=== PATIENT | female | born 1960 | race Caucasian/White ===

== ENCOUNTER 2021-01-17 12:38 | Outpatient (REF) | payer MEDICAID, SELFPAY ==
--- NOTE | ~2021-01-17 | CT_ITS ---
EXAMINATION: CT HEAD WITHOUT CONTRAST CLINICAL INFORMATION: Amnesia. COMPARISON: Head CT from 12/12/2016. TECHNIQUE: Contiguous axial imaging was performed from the skull base to vertex without intravenous administration of contrast. This CT examination was performed using dose optimization techniques as appropriate, variously including the following: *Automated exposure control *Adjustment of mA and/or kV according to patient size (this includes techniques or standardized protocols for targeted exams where dose is matched to indication/reason for exam; i.e. extremities or head) *Use of iterative reconstruction technique DLP: 732 mGy-cm FINDINGS: There is no evidence of acute intracranial hemorrhage or territorial infarction. No abnormal mass effect or midline shift is seen. Clarke to white matter differentiation is well preserved. No extra-axial fluid collections are identified. The ventricles are normal in size. There is no abnormal attenuation within the brain parenchyma. The osseous structures and soft tissues are normal. The mastoid air cells are are well aerated. There is mild patchy mucosal thickening in the paranasal sinuses. CT/CT head/brain wo con IMPRESSION: No acute intracranial pathology.
== END 2021-01-17 12:39 | disposition home or self-care (01) ==
LOC: HO.CT 12:38
PROVIDERS: PCP Internal Medicine Geriatric Medicine; Visit Provider Internal Medicine Geriatric Medicine
DX: R41.3 Other amnesia (principal)
CPT/HCPCS: 70450

== ENCOUNTER 2021-06-18 14:22 | Outpatient (REF) | payer MEDICAID, SELFPAY ==
[2021-06-19 03:12] LABS: CT PCR NOT DETECTED (Not Detect.); NG PCR NOT DETECTED (Not Detect.)
[2021-06-19 07:56] LABS: HBc Num1 0.04 S/CO (0.00-0.79); HIV AB/AG Nonreactive (Nonreactive); HIV Num 1 0.05 S/CO (0.00-0.99); Hepatitis B Core Antibody Nonreactive (Nonreactive); ~HepC Num1 0.07 S/CO (0.00-0.79); ~Hepatitis C Antibody Nonreactive (Nonreactive)
[2021-06-19 08:14] LABS: Syphilis Screen Nonreactive (Nonreactive)
[2021-06-19 12:16] LABS: BV Int Neg Control Negative (Negative); BV Int Pos Control Positive (Positive)
[2021-06-20 21:02] LABS: HPV mRNA E6/E7 rflx Not Detected (Not Detected)
== END 2021-06-18 14:23 | disposition home or self-care (01) ==
LOC: HO.LAB 14:22
PROVIDERS: Visit Provider Advanced Practice Midwife
DX: Z01.411 Encounter for gynecological examination (general) (routine) with abnormal findings (principal); Z11.51 Encounter for screening for human papillomavirus (HPV); Z11.4 Encounter for screening for human immunodeficiency virus [HIV]; N76.0 Acute vaginitis; Z20.2 Contact with and (suspected) exposure to infections with a predominantly sexual mode of transmission
CPT/HCPCS: 36415; 86704; 86780; 86803; 87389; 87480; 87491; 87510; 87591; 87624; 87660; 88142

== ENCOUNTER 2021-06-18 16:16 | Outpatient (REF) | payer MEDICAID, SELFPAY | END 2021-06-18 16:17 | disposition home or self-care (01) | LOC: HO.LAB 16:16 | PROVIDERS: PCP Internal Medicine Geriatric Medicine; Visit Provider Advanced Practice Midwife | DX: Z13.89 Encounter for screening for other disorder (principal) ==

== ENCOUNTER 2021-10-17 14:34 | Outpatient (REF) | payer MEDICAID, SELFPAY ==
--- NOTE | ~2021-10-17 | MM_ITS ---
EXAMINATION: MM SCREENING DIGITAL BREAST TOMOSYNTHESIS, BILATERAL CLINICAL INFORMATION: Screening. Asymptomatic. The lifetime risk of breast cancer based on the Tyrer-Cuzick Model is 4%. COMPARISON: Mammography: 10/08/2016, 06/05/2015 TECHNIQUE: Digital breast tomosynthesis is performed in both the craniocaudal and mediolateral oblique views along with computer-aided detection (CAD). Synthesized 2D images are generated from the tomosynthesis. FINDINGS: There are scattered areas of fibroglandular density (ACR BI-RADS breast composition Category b). There are no significant masses, abnormal calcifications, or other abnormalities. Parenchymal pattern is similar to prior studies. There is no developing density or architectural abnormality. The axilla and skin contours are unremarkable. No significant changes. MM/MM tomosynthesis screening BI IMPRESSION: No mammographic evidence of malignancy. ASSESSMENT: BI-RADS 1: Negative RECOMMENDATION: Routine annual mammography screening. This patient's information was entered into a reminder system with a target due date for their next mammogram.
== END 2021-10-17 14:35 | disposition home or self-care (01) ==
LOC: HO.MAMMO 14:34
PROVIDERS: Visit Provider Advanced Practice Midwife
DX: Z12.31 Encounter for screening mammogram for malignant neoplasm of breast (principal)
CPT/HCPCS: 77063; 77067

== ENCOUNTER 2021-11-08 07:55 | Emergency (ER) | payer MEDICAID, SELFPAY ==
[2021-11-08] VITALS (8 sets, daily range): BP systolic 104–136; BP diastolic 61–96; PULSE 43–94; RESP 13–24; TEMP 36.1–37.2; O2SAT 91–100; BMI 28.0
[2021-11-08 08:26] LABS: Glucose, Whole Blood 141 mg/dL (60-115)
--- NOTE | 2021-11-08 08:26 | ECG_ITS ---
Test Reason : overdose Blood Pressure : / mmHG Vent. Rate : 053 BPM Atrial Rate : 053 BPM P-R Int : 166 ms QRS Dur : 080 ms QT Int : 450 ms P-R-T Axes : 051 014 016 degrees QTc Int : 422 ms Sinus bradycardia Septal infarct , age undetermined Abnormal ECG When compared with ECG of 12-MAY-2016 15:35, No significant change was found Referred By: Otilia Fisher Electronically Signed By:JHOANA SWAN
--- NOTE | 2021-11-08 08:29 | ED_ITS ---
HPI - Overdose General Chief Complaint: Overdose <Otilia Fisher NP - Last Filed: 11/08/21 17:57> Stated Complaint: Overdose <Otilia Fisher NP - Last Filed: 11/08/21 17:57> Time Seen by Provider: 11/08/21 08:09 <Otilia Fisher NP - Last Filed: 11/08/21 17:57> Source: EMS <Otilia Fisher NP - Last Filed: 11/08/21 17:57> Mode of arrival: EMS <Otilia Fisher NP - Last Filed: 11/08/21 17:57> History of Present Illness HPI Narrative: 61 yo was found on the side of the road by bystanders unresponsive and received 8mg IN narcan with +response. Patient arrives anxious, agitated, diaphoretic and incontinent of urine and stool. Reports she used 3 bags of heroin this morning. Not intentional OD. No SI. Denies additional substance use. <Otilia Fisher NP - Last Filed: 11/08/21 17:57> Related Data Home Medications: Home Medications Medication Instructions Recorded Confirmed albuterol sulfate 90 mcg/actuation 2 puff PO QID PRN 06/18/21 aerosol inhaler (ProAir HFA) budesonide-formoterol HFA 80 2 puff PO 06/18/21 mcg-4.5 mcg/actuation aerosol inhaler (Symbicort) buspirone 7.5 mg tablet 7.5 mg PO BID 06/18/21 diclofenac sodium 1 % topical gel 2 g topical BID 06/18/21 dulaglutide 0.75 mg/0.5 mL mg subcut QWEEK 06/18/21 subcutaneous pen injector (Trulicity) duloxetine 20 mg capsule,delayed 20 mg PO DAILY 06/18/21 release duloxetine 60 mg capsule,delayed 60 mg PO DAILY 06/18/21 release fluticasone propionate 110 1 puff PO BID 06/18/21 mcg/actuation HFA aerosol inhaler (Flovent HFA) gabapentin 300 mg capsule 300 mg PO TID 06/18/21 glipizide 5 mg tablet 2.5 mg PO BID 06/18/21 insulin glargine 100 unit/mL (3 30 unit subcut BEDTIME 06/18/21 mL) subcutaneous pen (Lantus Solostar U-100 Insulin) losartan 50 mg tablet 50 mg PO DAILY 06/18/21 mirtazapine 7.5 mg tablet 7.5 mg PO BEDTIME 06/18/21 montelukast 10 mg tablet 10 mg PO QPM 06/18/21 quetiapine 25 mg tablet 25 mg PO BEDTIME 06/18/21 Previous Rx's Medication Instructions Recorded clotrimazole-betamethasone 1 1 appl topical BID PRN itching 7 06/18/21 %-0.05 % topical cream days #45 grams <Otilia Fisher NP - Last Filed: 11/08/21 17:57> Allergies/Adverse Reactions: Allergies Allergy/AdvReac Type Severity Reaction Status Date / Time sulfamethoxazole Allergy Intermediate LIP Verified 06/18/21 15:10 [From BACTRIM] SWELLING soap [SOAP] Allergy Mild HIVES (TO Verified 06/18/21 15:10 IVORY SOAP) Sulfa (Sulfonamide Allergy Unknown Unknown Verified 06/18/21 15:10 Antibiotics) prednisone [PREDNISONE] AdvReac Intermediate bruising Verified 06/18/21 15:10 ivory soap Allergy Unknown hives Uncoded 07/27/13 00:00 <Otilia Fisher NP - Last Filed: 11/08/21 17:57> Review of Systems Review of Systems: Yes all other systems are reviewed and are negative <Otilia Fisher NP - Last Filed: 11/08/21 17:57> Constitutional: Constitutional: Reports no additional constitutional complaints, Denies body ache(s), Denies chills, Denies fever(s), Denies headache(s) and Denies weakness <Otilia Fisher NP - Last Filed: 11/08/21 17:57> Eyes: Eyes: Reports no additional eye complaints and Denies change in vision <Otilia Fisher NP - Last Filed: 11/08/21 17:57> ENT: Reports system reviewed and no additional complaints, except as documented, Denies dizziness, Denies headache(s), Denies nasal congestion, Denies nasal discharge and Denies neck pain <Otilia Fisher NP - Last Filed: 11/08/21 17:57> Cardiovascular: Cardiovascular: Reports no additional cardiovascular comp laints, Denies chest pain, Denies leg edema and Denies dyspnea <Otilia Fisher NP - Last Filed: 11/08/21 17:57> Respiratory: Respiratory: Reports no additional respiratory complaints, Denies cough and Denies dyspnea <Otilia Fisher NP - Last Filed: 11/08/21 17:57> Gastrointestinal: Gastrointestinal: Reports no additional gastrointestinal complaints, Denies abdominal pain, Denies diarrhea, Denies nausea and Denies vomiting <Otilia Fisher NP - Last Filed: 11/08/21 17:57> Genitourinary: Genitourinary: Reports no additional female genitourinary com plaints and Denies urinary incontinence <Otilia Fisher NP - Last Filed: 11/08/21 17:57> Musculoskeletal: Musculoskeletal: Reports no additional musculoskeletal complaints, Denies back pain, Denies arthralgias, Denies joint swelling, Denies neck pain, Denies numbness and Denies tingling <Otilia Fisher NP - Last Filed: 11/08/21 17:57> Integumentary/Breasts: Skin/Breast: Reports system reviewed and no additional complaints, except as docu and Denies rash <Otilia Fisher NP - Last Filed: 11/08/21 17:57> Neurologic: Reports system reviewed and no additional complaints, except as documented, Denies dizziness, Denies headache(s), Denies numbness, Denies tingling and Denies weakness <Otilia Fisher NP - Last Filed: 11/08/21 17:57> Psychiatric: Psychiatric: Reports anxiety and Denies suicidal ideation <Otilia Fisher NP - Last Filed: 11/08/21 17:57> PMFSH Past Medical History Attestation statement: The following information was validated with the patient. <Otilia Fisher NP - Last Filed: 11/08/21 17:57> Source: old records reviewed and nursing notes reviewed <Otilia Fisher NP - Last Filed: 11/08/21 17:57> Medical History: Medical History Depression Diabetes Insomnia Interstitial cystitis <Otilia Fisher NP - Last Filed: 11/08/21 17:57> Surgical History: Surgical History Hx of appendectomy Tubal ligation status <Otilia Fisher NP - Last Filed: 11/08/21 17:57> Social History Social History: Social History Patient Tobacco Use Status: Current someday Tobacco user Advance Directives: No Advance Directives Information Provided: No <Otilia Fisher NP - Last Filed: 11/08/21 17:57> Physical Exam Vital Signs: Vital Signs: Last Vital Signs Temp 97.6 F 11/08/21 18:10 Pulse 43 L 11/08/21 18:10 Resp 14 11/08/21 18:10 BP 125/86 11/08/21 18:10 Pulse Ox 91 L 11/08/21 18:10 O2 Del Method 11/08/21 18:10 BMI result Body Mass Index 28.0 <Otilia Fisher NP - Last Filed: 11/08/21 17:57> Vital Signs: Last Vital Signs Temp 97.6 F 11/08/21 18:10 Pulse 43 L 11/08/21 18:10 Resp 14 11/08/21 18:10 BP 125/86 11/08/21 18:10 Pulse Ox 91 L 11/08/21 18:10 O2 Del Method 11/08/21 18:10 BMI result Body Mass Index 28.0 <JULIANNA Bernal - Last Filed: 11/08/21 21:17> Const: Other: agitated <Otilia Fisher NP - Last Filed: 11/08/21 17:57> General: alert and anxious <Otilia Fisher NP - Last Filed: 11/08/21 17:57> Orientation/consciousness: patient oriented x3 <Otilia Fisher NP - Last Filed: 11/08/21 17:57> Limitations: no limitations <Otilia Fisher NP - Last Filed: 11/08/21 17:57> HEENT: Head: Yes normal to inspection <Otilia Fisher NP - Last Filed: 11/08/21 17:57> Ears: hearing grossly normal bilaterally <Otilia Fisher [employer] - Last Filed: 11/08/21 17:57> General nose exam: Normal external nose present <Otilia Fisher NP - Last Filed: 11/08/21 17:57> Face and sinus: Yes normal facial exam <Otilia Fisher [employer] - Last Filed: 11/08/21 17:57> Mouth: Normal oral and palatal mucosa present <Otilia Fisher NP - Last Filed: 11/08/21 17:57> Throat: Yes posterior oropharynx normal <Otilia Fisher [employer] - Last Filed: 11/08/21 17:57> Eyes: General: appearance normal, both eyes and all related structures <Otilia Fisher [employer] PROF[employer] - Last Filed: 11/08/21 17:57> Pupils: Equal, round and reactive pupils present <Otilia Fisher NP - Last Filed: 11/08/21 17:57> Neck: Neck: Yes normal visual inspection <Otilia Fisher NP - Last Filed: 11/08/21 17:57> Chest: Chest palpation & inspection: normal inspection of the chest <Otilia Fisher NP - Last Filed: 11/08/21 17:57> Resp: Effort & Inspection: normal respiratory effort <Otilia Fisher NP - Last Filed: 11/08/21 17:57> Auscultation: clear to auscultation bilaterally <Otilia Fisher NP - Last Filed: 11/08/21 17:57> Cardio: Rate: regular rate <Otilia Fisher NP - Last Filed: 11/08/21 17:57> Rhythm: regular rhythm <Otilia Fisher NP - Last Filed: 11/08/21 17:57> Peripheral pulses: Peripheral pulses 2+ throughout <Otilia Fisher NP - Last Filed: 11/08/21 17:57> GI: Inspection: Yes normal to inspection <Otilia Fisher NP - Last Filed: 11/08/21 17:57> Palpation (GI): Soft to palpation and nontender <Otilia Fisher NP - Last Filed: 11/08/21 17:57> Auscultation: normal bowel sounds <Otilia Fisher NP - Last Filed: 11/08/21 17:57> Back/Spine/Pelvis: Thoracic/Lumbar Spine: thoracic and lumbar spine normal to inspection <Otilia Fisher NP - Last Filed: 11/08/21 17:57> Skin: Other: +diaphoretic <Otilia Fisher NP - Last Filed: 11/08/21 17:57> General skin exam: no rashes or lesions noted <Otilia Fisher NP - Last Filed: 11/08/21 17:57> Neuro: General: patient oriented x3 and moves all extremities <Otilia Fisher NP - Last Filed: 11/08/21 17:57> Cranial nerves: Yes Equal, round and reactive pupils present <Otilia Fisher NP - Last Filed: 11/08/21 17:57> Cognition (Neuro): normal cognition <Otilia Fisher NP - Last Filed: 11/08/21 17:57> Extrem: General: Yes normal to inspection <Otilia Fisher NP - Last Filed: 11/08/21 17:57> Course Course Course Narrative: Met with disaster recovery manager but not participating <Otilia Fisher NP - Last Filed: 11/08/21 17:57> Reevaluation(s) Reevaluation #1: 1540-patient's initial troponin was 19. Her EKG showed no ischemic changes when compared to previous EKG. A repeat EKG was obtained and a level is 35.3. Patient denies chest pain. CPK will be added on. Less likely ACS. Consider rhabdo. Will trend <Otilia Fisher NP - Last Filed: 11/08/21 17:57> Reevaluation #2: 1600-CPK is 1490. This is likely secondary to the patient's restlessness earlier, agitation and movement secondary to receiving Narcan. Patient will be given 2 L of IV fluid as she is sleeping although rousable to voice. Ox4. Once she is awake will encourage p.o. fluids and will trend CPK and troponin. <Otilia Fisher NP - Last Filed: 11/08/21 17:57> Reevaluation #3: 1745-Spoke to family (daughter Nelda) at the bedside. Given update on POC. She tells me her mom has a longstanding history of polysubstance abuse. She tells me that her mom is been to detox many times but always leaves early. She uses heroin and crack daily. She tells me that when she spoke to the patient last she was using about 10 bags of heroin a day and was sniffing this. She also smokes crack cocaine. Patient tells me she is quite worried about the patient's polysubstance use. Is interested in a [place] 35. Will have care team come and speak to the family about this process <Otilia Fisher NP - Last Filed: 11/08/21 17:57> Additional Reevaluation(s): 1800-Sign out to kellen parker pending above <Otilia Fisher NP - Last Filed: 11/08/21 17:57> 1800-Sign out to kellen parker pending above 1803 Leslie from care team gave daughter info on section 35 daughter will go on Thursday to court. 1950 Patient's troponin improving, patient denying chest pain, shortness of breath, l ikely demand ischemia secondary to drug use. CK down trending 880. Patient sleeping comfortably. Although nursing documented a O2 saturation of 91% patient has not dropped below 97% since I took over for care. Patient appears comfortable no acute distress. Will put in a substance use disorder evaluation. At this time patient will be placed in physician observation to allow more time to be evaluated by the behavioral health team. At time observation was started patient common cooperative no acute distress will continue to monitor. 2115 care team will reeval patient at a later time not participating in convo <JULIANNA Bernal - Last Filed: 11/08/21 21:17> MDM - Overdose MDM Narrative Medical decision making narrative: 61 yo female here after unintentional OD on heroin who required 8mg IN narcan [employer]. Patient arrives alert but quite agitated, anxious, restless, diaphoretic and incontinent of urine and stool. Admits to using heroin. HPI is limited d/t patients cooperativeness. She has never been here before for this. Will check labs, EKG, BARRAZA Give Ativan Involve CARE team <Otilia Fisher NP - Last Filed: 11/08/21 17:57> Medical Records Attestation: I reviewed the patient's medical records. <Otilia Fisher NP - Last Filed: 11/08/21 17:57> Lab Data Attestation: I reviewed the patient's lab results. <Otilia Fisher NP - Last Filed: 11/08/21 17:57> Result diagrams: : 11/08/21 10:54 11/08/21 10:54 <Otilia Fisher NP - Last Filed: 11/08/21 17:57> Labs: Lab Results 11/08/21 11/08/21 11/08/21 Range/Units 08:23 10:54 10:54 WBC 11.5 H (4.8-10.8) X10*3/uL RBC 4.58 (4.20-5.50) X10*6/uL Hgb 13.2 (12.0-16.0) g/dl Hct 39.4 (37.0-47.0) % MCV 86.0 (80.0-98.0) fL MCH 28.8 (27.0-33.0) pg MCHC 33.5 (31.0-35.0) g/dl RDW 12.6 (11.0-16.0) % Plt Count 257 (160-400) X10*3/uL MPV 10.6 (9.4-12.3) fL Immature Gran % (Auto) 0.2 (0.0-0.4) % Neut % (Auto) 80.0 H (45-73) % Lymph % (Auto) 11.3 L (20-40) % [place] % (Auto) 6.0 (2-11) % Eos % (Auto) 2.2 (0-4) % Baso % (Auto) 0.3 (0-2) % Lymph # (Auto) 1.3 (1.2-4.9) X10*3/uL [place] # (Auto) 0.7 (0.1-1.2) X10*3/uL Eos # (Auto) 0.3 (0.0-0.4) X10*3/uL Baso # (Auto) 0.0 (0.0-0.2) X10*3/uL Abs Immat Gran (auto) 0.02 (0.00-0.03) X10*3/uL Absolute Neuts (auto) 9.2 H (2.0-8.3) x10*3/uL Absolute Nucleated RBC 0.000 (0.0-0.012) X10*3/uL Nucleated RBC % (auto) 0.0 (0.0-0.2) /100WBC Sodium 142 (135-145) mmol/L Potassium 3.9 (3.3-5.1) mmol/L Chloride 103 (96-108) mmol/L Carbon Dioxide 27 (22-29) mmol/L Anion Gap 16 (12-20) BUN 11 (9-16) mg/dL Creatinine 0.96 (0.5-1.4) mg/dL Estim Creat Clear Calc 53.0 Estimated GFR 59 POC Glucose 141 H (60-115) mg/dL Random Glucose 219 H (60-115) mg/dL Calcium 10.2 (8.4-10.2) mg/dL Magnesium 1.7 (1.6-2.6) mg/dL Total Bilirubin 0.4 (0.0-1.0) mg/dL Direct Bilirubin 0.2 (0.0-0.5) mg/dL AST 41 H (5-31) U/L ALT 30 (0-31) U/L Alkaline Phosphatase 91 (39-117) U/L Total Creatine Kinase 1490 H (26-140) U/L Troponin I High Sens (<3.5-17.0) ng/L Total Protein 6.8 (6.5-8.0) g/dL Albumin 4.0 (3.5-5.0) g/dL Salicylates < 5.0 L (15-30) mg/dL Acetaminophen < 1 (<30) mcg/mL Ethyl Alcohol mg/dL 11/08/21 11/08/21 11/08/21 Range/Units 10:54 10:54 15:07 WBC (4.8-10.8) X10*3/uL RBC (4.20-5.50) X10*6/uL Hgb (12.0-16.0) g/dl Hct (37.0-47.0) % MCV (80.0-98.0) fL MCH (27.0-33.0) pg MCHC (31.0-35.0) g/dl RDW (11.0-16.0) % Plt Count (160-400) X10*3/uL MPV (9.4-12.3) fL Immature Gran % (Auto) (0.0-0.4) % Neut % (Auto) (45-73) % Lymph % (Auto) (20-40) % [place] % (Auto) (2-11) % Eos % (Auto) (0-4) % Baso % (Auto) (0-2) % Lymph # (Auto) (1.2-4.9) X10*3/uL [place] # (Auto) (0.1-1.2) X10*3/uL Eos # (Auto) (0.0-0.4) X10*3/uL Baso # (Auto) (0.0-0.2) X10*3/uL Abs Immat Gran (auto) (0.00-0.03) X10*3/uL Absolute Neuts (auto) (2.0-8.3) x10*3/uL Absolute Nucleated RBC (0.0-0.012) X10*3/uL Nucleated RBC % (auto) (0.0-0.2) /100WBC Sodium (135-145) mmol/L Potassium (3.3-5.1) mmol/L Chloride (96-108) mmol/L Carbon Dioxide (22-29) mmol/L Anion Gap (12-20) BUN (9-16) mg/dL Creatinine (0.5-1.4) mg/dL Estim Creat Clear Calc Estimated GFR POC Glucose (60-115) mg/dL Random Glucose (60-115) mg/dL Calcium (8.4-10.2) mg/dL Magnesium (1.6-2.6) mg/dL Total Bilirubin (0.0-1.0) mg/dL Direct Bilirubin (0.0-0.5) mg/dL AST (5-31) U/L ALT (0-31) U/L Alkaline Phosphatase (39-117) U/L Total Creatine Kinase (26-140) U/L Troponin I High Sens 19.8 H 35.3 H D (<3.5-17.0) ng/L Total Protein (6.5-8.0) g/dL Albumin (3.5-5.0) g/dL Salicylates (15-30) mg/dL Acetaminophen (<30) mcg/mL Ethyl Alcohol < 10 mg/dL 11/08/21 11/08/21 11/08/21 Range/Units 18:07 19:12 19:47 WBC (4.8-10.8) X10*3/uL RBC (4.20-5.50) X10*6/uL Hgb (12.0-16.0) g/dl Hct (37.0-47.0) % MCV (80.0-98.0) fL MCH (27.0-33.0) pg MCHC (31.0-35.0) g/dl RDW (11.0-16.0) % Plt Count (160-400) X10*3/uL MPV (9.4-12.3) fL Immature Gran % (Auto) (0.0-0.4) % Neut % (Auto) (45-73) % Lymph % (Auto) (20-40) % [place] % (Auto) (2-11) % Eos % (Auto) (0-4) % Baso % (Auto) (0-2) % Lymph # (Auto) (1.2-4.9) X10*3/uL [place] # (Auto) (0.1-1.2) X10*3/uL Eos # (Auto) (0.0-0.4) X10*3/uL Baso # (Auto) (0.0-0.2) X10*3/uL Abs Immat Gran (auto) (0.00-0.03) X10*3/uL Absolute Neuts (auto) (2.0-8.3) x10*3/uL Absolute Nucleated RBC (0.0-0.012) X10*3/uL Nucleated RBC % (auto) (0.0-0.2) /100WBC Sodium (135-145) mmol/L Potassium (3.3-5.1) mmol/L Chloride (96-108) mmol/L Carbon Dioxide (22-29) mmol/L Anion Gap (12-20) BUN (9-16) mg/dL Creatinine (0.5-1.4) mg/dL Estim Creat Clear Calc Estimated GFR POC Glucose 138 H (60-115) mg/dL Random Glucose (60-115) mg/dL Calcium (8.4-10.2) mg/dL Magnesium (1.6-2.6) mg/dL Total Bilirubin (0.0-1.0) mg/dL Direct Bilirubin (0.0-0.5) mg/dL AST (5-31) U/L ALT (0-31) U/L Alkaline Phosphatase (39-117) U/L Total Creatine Kinase 880 H D (26-140) U/L Troponin I High Sens 26.3 H (<3.5-17.0) ng/L Total Protein (6.5-8.0) g/dL Albumin (3.5-5.0) g/dL Salicylates (15-30) mg/dL Acetaminophen (<30) mcg/mL Ethyl Alcohol mg/dL <Otilia Fisher, [employer] PROFESSION[employer] - Last Filed: 11/08/21 17:57> Lab Results 11/08/21 11/08/21 11/08/21 Range/Units 08:23 10:54 10:54 WBC 11.5 H (4.8-10.8) X10*3/uL RBC 4.58 (4.20-5.50) X10*6/uL Hgb 13.2 (12.0-16.0) g/dl Hct 39.4 (37.0-47.0) % MCV 86.0 (80.0-98.0) fL MCH 28.8 (27.0-33.0) pg MCHC 33.5 (31.0-35.0) g/dl RDW 12.6 (11.0-16.0) % Plt Count 257 (160-400) X10*3/uL MPV 10.6 (9.4-12.3) fL Immature Gran % (Auto) 0.2 (0.0-0.4) % Neut % (Auto) 80.0 H (45-73) % Lymph % (Auto) 11.3 L (20-40) % [place] % (Auto) 6.0 (2-11) % Eos % (Auto) 2.2 (0-4) % Baso % (Auto) 0.3 (0-2) % Lymph # (Auto) 1.3 (1.2-4.9) X10*3/uL [place] # (Auto) 0.7 (0.1-1.2) X10*3/uL Eos # (Auto) 0.3 (0.0-0.4) X10*3/uL Baso # (Auto) 0.0 (0.0-0.2) X10*3/uL Abs Immat Gran (auto) 0.02 (0.00-0.03) X10*3/uL Absolute Neuts (auto) 9.2 H (2.0-8.3) x10*3/uL Absolute Nucleated RBC 0.000 (0.0-0.012) X10*3/uL Nucleated RBC % (auto) 0.0 (0.0-0.2) /100WBC Sodium 142 (135-145) mmol/L Potassium 3.9 (3.3-5.1) mmol/L Chloride 103 (96-108) mmol/L Carbon Dioxide 27 (22-29) mmol/L Anion Gap 16 (12-20) BUN 11 (9-16) mg/dL Creatinine 0.96 (0.5-1.4) mg/dL Estim Creat Clear Calc 53.0 Estimated GFR 59 POC Glucose 141 H (60-115) mg/dL Random Glucose 219 H (60-115) mg/dL Calcium 10.2 (8.4-10.2) mg/dL Magnesium 1.7 (1.6-2.6) mg/dL Total Bilirubin 0.4 (0.0-1.0) mg/dL Direct Bilirubin 0.2 (0.0-0.5) mg/dL AST 41 H (5-31) U/L ALT 30 (0-31) U/L Alkaline Phosphatase 91 (39-117) U/L Total Creatine Kinase 1490 H (26-140) U/L Troponin I High Sens (<3.5-17.0) ng/L Total Protein 6.8 (6.5-8.0) g/dL Albumin 4.0 (3.5-5.0) g/dL Salicylates < 5.0 L (15-30) mg/dL Acetaminophen < 1 (<30) mcg/mL Ethyl Alcohol mg/dL 11/08/21 11/08/21 11/08/21 Range/Units 10:54 10:54 15:07 WBC (4.8-10.8) X10*3/uL RBC (4.20-5.50) X10*6/uL Hgb (12.0-16.0) g/dl Hct (37.0-47.0) % MCV (80.0-98.0) fL MCH (27.0-33.0) pg MCHC (31.0-35.0) g/dl RDW (11.0-16.0) % Plt Count (160-400) X10*3/uL MPV (9.4-12.3) fL Immature Gran % (Auto) (0.0-0.4) % Neut % (Auto) (45-73) % Lymph % (Auto) (20-40) % [place] % (Auto) (2-11) % Eos % (Auto) (0-4) % Baso % (Auto) (0-2) % Lymph # (Auto) (1.2-4.9) X10*3/uL [place] # (Auto) (0.1-1.2) X10*3/uL Eos # (Auto) (0.0-0.4) X10*3/uL Baso # (Auto) (0.0-0.2) X10*3/uL Abs Immat Gran (auto) (0.00-0.03) X10*3/uL Absolute Neuts (auto) (2.0-8.3) x10*3/uL Absolute Nucleated RBC (0.0-0.012) X10*3/uL Nucleated RBC % (auto) (0.0-0.2) /100WBC Sodium (135-145) mmol/L Potassium (3.3-5.1) mmol/L Chloride (96-108) mmol/L Carbon Dioxide (22-29) mmol/L Anion Gap (12-20) BUN (9-16) mg/dL Creatinine (0.5-1.4) mg/dL Estim Creat Clear Calc Estimated GFR POC Glucose (60-115) mg/dL Random Glucose (60-115) mg/dL Calcium (8.4-10.2) mg/dL Magnesium (1.6-2.6) mg/dL Total Bilirubin (0.0-1.0) mg/dL Direct Bilirubin (0.0-0.5) mg/dL AST (5-31) U/L ALT (0-31) U/L Alkaline Phosphatase (39-117) U/L Total Creatine Kinase (26-140) U/L Troponin I High Sens 19.8 H 35.3 H D (<3.5-17.0) ng/L Total Protein (6.5-8.0) g/dL Albumin (3.5-5.0) g/dL Salicylates (15-30) mg/dL Acetaminophen (<30) mcg/mL Ethyl Alcohol < 10 mg/dL 11/08/21 11/08/21 11/08/21 Range/Units 18:07 19:12 19:47 WBC (4.8-10.8) X10*3/uL RBC (4.20-5.50) X10*6/uL Hgb (12.0-16.0) g/dl Hct (37.0-47.0) % MCV (80.0-98.0) fL MCH (27.0-33.0) pg MCHC (31.0-35.0) g/dl RDW (11.0-16.0) % Plt Count (160-400) X10*3/uL MPV (9.4-12.3) fL Immature Gran % (Auto) (0.0-0.4) % Neut % (Auto) (45-73) % Lymph % (Auto) (20-40) % [place] % (Auto) (2-11) % Eos % (Auto) (0-4) % Baso % (Auto) (0-2) % Lymph # (Auto) (1.2-4.9) X10*3/uL [place] # (Auto) (0.1-1.2) X10*3/uL Eos # (Auto) (0.0-0.4) X10*3/uL Baso # (Auto) (0.0-0.2) X10*3/uL Abs Immat Gran (auto) (0.00-0.03) X10*3/uL Absolute Neuts (auto) (2.0-8.3) x10*3/uL Absolute Nucleated RBC (0.0-0.012) X10*3/uL Nucleated RBC % (auto) (0.0-0.2) /100WBC Sodium (135-145) mmol/L Potassium (3.3-5.1) mmol/L Chloride (96-108) mmol/L Carbon Dioxide (22-29) mmol/L Anion Gap (12-20) BUN (9-16) mg/dL Creatinine (0.5-1.4) mg/dL Estim Creat Clear Calc Estimated GFR POC Glucose 138 H (60-115) mg/dL Random Glucose (60-115) mg/dL Calcium (8.4-10.2) mg/dL Magnesium (1.6-2.6) mg/dL Total Bilirubin (0.0-1.0) mg/dL Direct Bilirubin (0.0-0.5) mg/dL AST (5-31) U/L ALT (0-31) U/L Alkaline Phosphatase (39-117) U/L Total Creatine Kinase 880 H D (26-140) U/L Troponin I High Sens 26.3 H (<3.5-17.0) ng/L Total Protein (6.5-8.0) g/dL Albumin (3.5-5.0) g/dL Salicylates (15-30) mg/dL Acetaminophen (<30) mcg/mL Ethyl Alcohol mg/dL <JULIANNA Bernal - Last Filed: 11/08/21 21:17> ECG Data Attestation: I personally reviewed and interpreted this ECG as follows: <Otilia Fisher NP - Last Filed: 11/08/21 17:57> ECG interpretation date: 11/08/21 <Otilia Fisher NP - Last Filed: 11/08/21 17:57> ECG interpretation time: 12:23 <Otilia Fisher NP - Last Filed: 11/08/21 17:57> Interpretation: Sinus bradycardia with rate 53, normal AL, normal QRS, normal QT T wave inversions lead 3 unchanged from previous EKG 05/12/2016 <Otilia Fisher NP - Last Filed: 11/08/21 17:57> Critical Care Time Critical Care Time Critical Care Time: Yes <Otilia Fisher NP - Last Filed: 11/08/21 17:57> Total Critical Care Time: 90 <Otilia Fisher NP - Last Filed: 11/08/21 17:57> Attestation: Re-evaluations for mental status, trending labs, <EBONIE Conner Last Filed: 11/08/21 17:57> Discharge Plan Discharge Clinical Impression: Drug overdose, Rhabdomyolysis <EBONIE Conner Last Filed: 11/08/21 17:57> Patient Disposition: Still a Patient <EBONIE Conner Last Filed: 11/08/21 17:57> Prescriptions: No Action glipizide 5 mg tablet 2.5 mg PO BID montelukast 10 mg tablet 10 mg PO QPM Trulicity 0.75 mg/0.5 mL pen injector subcut QWEEK Lantus Solostar U-100 Insulin 100 unit/mL (3 mL) insulin pen 30 unit subcut BEDTIME budesonide-formoterol [Symbicort] 80-4.5 mcg/actuation HFA aerosol inhaler 2 puff PO albuterol sulfate [ProAir HFA] 90 mcg/actuation HFA aerosol inhaler 2 puff PO QID PRN buspirone 7.5 mg tablet 7.5 mg PO BID gabapentin 300 mg capsule 300 mg PO TID duloxetine 20 mg capsule,delayed release(DR/EC) 20 mg PO DAILY mirtazapine 7.5 mg tablet 7.5 mg PO BEDTIME losartan 50 mg tablet 50 mg PO DAILY quetiapine 25 mg tablet 25 mg PO BEDTIME duloxetine 60 mg capsule,delayed release(DR/EC) 60 mg PO DAILY diclofenac sodium 1 % gel 2 g topical BID Flovent HFA 110 mcg/actuation HFA aerosol inhaler 1 puff PO BID clotrimazole-betamethasone 1-0.05 % cream 1 appl topical BID PRN (Reason: itching) 7 Days Qty: 45 0RF <Otilia Fisher NP - Last Filed: 11/08/21 17:57>
[2021-11-08] MEDS: LORazepam 1 MG TABLET 2 MG PO (08:33)
--- NOTE | 2021-11-08 09:00 | PC.NURSE ---
pt appears to have soiled self, assisted w two staff members to restroom, ambulating w unsteady gait but pt is awake and alert. pt is heavily soild w both bm and urine incontinence. pt able to assist in cleaning self up. brought back to stretcher where pt is resting with intermittent labile movements. uncooperative for ekg.
--- NOTE | 2021-11-08 09:09 | PC.NURSE ---
security refusing to take pt belongings to [facility], which have been bagged previously by staff in sealed clean bags. pts belongings now left at bedside.
[2021-11-08 10:58] LABS: Basophils Percent Auto 0.3 % (0-2); Eosinophils Absolute Auto 0.3 X10*3/uL (0.0-0.4); Eosinophils Percent Auto 2.2 % (0-4); Hematocrit 39.4 % (37.0-47.0); Hemoglobin 13.2 g/dl (12.0-16.0); Imm Gran Abs Auto 0.02 X10*3/uL (0.00-0.03); Imm Gran Pct Auto 0.2 % (0.0-0.4); Lymphocytes Absolute Auto 1.3 X10*3/uL (1.2-4.9); Lymphocytes Percent Auto 11.3 % (20-40); MANUAL DIFF FLAG NO; Mean Corpuscular HGB Conc 33.5 g/dl (31.0-35.0); Mean Corpuscular Hemoglobin 28.8 pg (27.0-33.0); Mean Platelet Volume 10.6 fL (9.4-12.3); Monocytes Absolute Auto 0.7 X10*3/uL (0.1-1.2); Neutrophils Absolute Auto 9.2 x10*3/uL (2.0-8.3); Platelet Count 257 X10*3/uL (160-400); Red Blood Count 4.58 X10*6/uL (4.20-5.50); Red Cell Distribution Width 12.6 % (11.0-16.0); White Blood Count 11.5 X10*3/uL (4.8-10.8)
[2021-11-08 11:13] LABS: Ethanol < 10 mg/dL
[2021-11-08 11:16] LABS: Acetaminophen LAB < 1 mcg/mL (<30); Alanine Aminotransferase 30 U/L (0-31); Alkaline Phosphatase 91 U/L (39-117); Anion Gap 16 (12-20); Aspartate Amino Transferase 41 U/L (5-31); Bilirubin Direct 0.2 mg/dL (0.0-0.5); Bilirubin Total 0.4 mg/dL (0.0-1.0); Blood Urea Nitrogen 11 mg/dL (9-16); Calcium 10.2 mg/dL (8.4-10.2); Carbon Dioxide 27 mmol/L (22-29); Chloride 103 mmol/L (96-108); Estimated Glomerular Filt Rate 59; Glucose Random 219 mg/dL (60-115); Magnesium 1.7 mg/dL (1.6-2.6); Potassium 3.9 mmol/L (3.3-5.1); Salicylate < 5.0 mg/dL (15-30); Sodium 142 mmol/L (135-145); Total Protein 6.8 g/dL (6.5-8.0)
[2021-11-08 11:23] LABS: Troponin-I High Sensitivity 19.8 ng/L (<3.5-17.0)
--- NOTE | 2021-11-08 11:28 | PC.NURSE ---
Techs attempted to get ekg, pt could not stay still enough to complete. Blood work complete. Will re-attempt ekg when pt is more calm. Pt is in no apparent distress, VSS.
--- NOTE | 2021-11-08 12:11 | PC.NURSE ---
Pt sleeping, respirations even and unlabored, no apparent distress
--- NOTE | 2021-11-08 13:21 | PC.NURSE ---
pt son at bedside for visitation. updated on plan of care with pt permission. pt understanding and agreeable to care plan. pt continues to rest in stretcher w rr even and unlabored.
--- NOTE | 2021-11-08 13:28 | MHC.RECOVSUP ---
? Reason for consult:OPI o Current location:ED17 o Identified substance use concern: - Overdose ? Intervention: ? Plan: o Follow up tomorrow: Pt isn't conscious to talk, Dr. artie Champion with Ativan and she is resting, please follow up with pt when she is awake.
--- NOTE | 2021-11-08 15:02 | MHC.RECOVRN ---
T/W went to go check in on pt to perform SUDE. Pt not waking up to verbal stimuli, t/w made several attempts, pt sleeping.
[2021-11-08 15:33] LABS: Troponin-I High Sensitivity 35.3 ng/L (<3.5-17.0)
[2021-11-08] MEDS: 0.9 % Sodium Chloride 2,000 ML 999 ML IV (16:10)
--- NOTE | 2021-11-08 18:03 | MHC.CARE ---
At the request of Janette Fisher NP, CARE Team speaks with pt's daughter regarding options available to connect pt with tx.
--- NOTE | 2021-11-08 18:05 | PC.NURSE ---
Pt daughter Nelda Hankins ([phone]) would like to be updated on a case by case basis if anything changes or pt gets discharged.
[2021-11-08 18:17] LABS: Glucose, Whole Blood 138 mg/dL (60-115)
--- NOTE | 2021-11-08 19:15 | MHC.RECOVSUP ---
? Reason for consult:Recovery Support o Current location: ED -17? o Identified substance use concern: Substance Use Disorder? - Overdose ? Plan: o Follow up tomorrow ? ? Additional information:?Patient consultation with the Care Team and PT. Wasn't able to connect with patient she still was incoherent for conversation. Family members are looking to [place] [address] and is seeking support from the Care Team. Please follow up tomorrow.
[2021-11-08 19:43] LABS: Troponin-I High Sensitivity 26.3 ng/L (<3.5-17.0)
--- NOTE | 2021-11-08 21:19 | MHC.CARE ---
Pt was sedated care team will meet with pt at a later time to offer a SUDE.
[2021-11-09 02:28] VITALS: BP 111/56; PULSE 57; RESP 15; O2SAT 98
[2021-11-09 07:11] VITALS: BP 126/69; PULSE 68; RESP 16; TEMP 36.6; O2SAT 97
[2021-11-09 08:41] LABS: Troponin-I High Sensitivity 12.4 ng/L (<3.5-17.0)
--- NOTE | 2021-11-09 08:45 | MHC.RECOVSUP ---
Recovery Support note: Patient is a 61 year old [place] women who presented to [facility] ED via EMS after an accidental overdose. This health technical writer met with patient on 11/09 to discuss supports and treatment options. Patient declined consultation at this time. Encouraged patient to inform staff if she changes her mind. This health technical writer will attempt to offer support again prior to discharge.
[2021-11-09 09:43] VITALS: BP 134/69; PULSE 53; RESP 18; O2SAT 96
--- NOTE | 2021-11-09 09:44 | PC.NURSE ---
Plan for detox bed in [place]. SIster at bedside and aware of plan, will gather some clothing/belongings from home. Pt at breakfast, tolerated well.
--- NOTE | 2021-11-09 11:07 | MHC.RECOVSUP ---
Recovery Support note: This proposal lead writer followed up with patient when family was present. Family implored patient to accept treatment and patient agreed. Patient declined SUDE however accepted ATS referrals. Referral placed to [place] and patient was accepted for admission. Patient to be transported by family.
== END 2021-11-09 11:30 | disposition home or self-care (01) ==
PROVIDERS: Nurse Practitioner Family; Physician Assistant; Emergency Provider Emergency Medicine; PCP Internal Medicine Geriatric Medicine
DX: T40.1X1A Poisoning by heroin, accidental (unintentional), initial encounter (principal); R40.4 Transient alteration of awareness; F19.10 Other psychoactive substance abuse, uncomplicated; R45.1 Restlessness and agitation; F41.9 Anxiety disorder, unspecified; E11.9 Type 2 diabetes mellitus without complications; Y92.480 Sidewalk as the place of occurrence of the external cause; Z79.4 Long term (current) use of insulin; Z79.899 Other long term (current) drug therapy
CPT/HCPCS: 36415; 80048; 80076; 80143; 80179; 82077; 82550; 82947; 83735; 84484; 85025; 93005; 96360; 96361; 99285

== ENCOUNTER 2024-07-19 14:57 | Outpatient (REF) | payer MEDICAID, SELFPAY ==
[2024-07-19 16:58] LABS: MANUAL DIFF FLAG NO
[2024-07-19 17:14] LABS: Basophils Percent Auto 0.7 % (0-2); Eosinophils Absolute Auto 0.2 X10*3/uL (0.0-0.4); Eosinophils Percent Auto 2.5 % (0-4); Hematocrit 39.1 % (37.0-47.0); Hemoglobin 12.4 g/dl (12.0-16.0); Imm Gran Abs Auto 0.01 X10*3/uL (0.00-0.03); Imm Gran Pct Auto 0.2 % (0.0-0.4); Lymphocytes Absolute Auto 1.6 X10*3/uL (1.2-4.9); Lymphocytes Percent Auto 27.2 % (20-40); Mean Corpuscular HGB Conc 31.7 g/dl (31.0-35.0); Mean Corpuscular Hemoglobin 28.1 pg (27.0-33.0); Mean Corpuscular Volume 88.5 fL (80.0-98.0); Mean Platelet Volume 10.5 fL (9.4-12.3); Monocytes Absolute Auto 0.6 X10*3/uL (0.1-1.2); Monocytes Percent Auto 10.1 % (2-11); Neutrophils Absolute Auto 3.5 x10*3/uL (2.0-8.3); Neutrophils Percent Auto 59.3 % (45-73); Platelet Count 262 X10*3/uL (160-400); Red Blood Count 4.42 X10*6/uL (4.20-5.50); White Blood Count 5.9 X10*3/uL (4.8-10.8)
[2024-07-19 17:36] LABS: Alanine Aminotransferase 17 U/L (0-31); Albumin Level 4.3 g/dL (3.5-5.0); Alkaline Phosphatase 98 U/L (39-117); Anion Gap 11 (12-20); Aspartate Amino Transferase 18 U/L (5-31); Bilirubin Total 0.6 mg/dL (0.0-1.0); Blood Urea Nitrogen 17 mg/dL (9-16); Calcium 9.4 mg/dL (8.4-10.2); Carbon Dioxide 29 mmol/L (22-29); Chloride 102 mmol/L (96-108); Cholesterol 167 mg/dL (<200); Estimated Glomerular Filt Rate 59; Glucose Random 290 mg/dL (60-115); HDL Cholesterol 58 mg/dL (>40); LDL Cholesterol Calculated 96 mg/dL (<100); Potassium 4.2 mmol/L (3.3-5.1); Sodium 138 mmol/L (135-145); Total Protein 7.3 g/dL (6.5-8.0); Triglycerides 69 mg/dL (<150)
[2024-07-19 17:50] LABS: Creatinine Urine 179.39 mg/dL; Microalbum/Creatinine Ratio Ur 7.2 ug/mg cr (<30)
[2024-07-21 04:40] LABS: HIV AB/AG Nonreactive (Nonreactive); HIV Num 1 0.06 S/CO (0.00-0.99); ~HepC Num1 0.16 S/CO (0.00-0.79); ~Hepatitis C Antibody Nonreactive (Nonreactive)
== END 2024-07-19 14:58 | disposition home or self-care (01) ==
LOC: HO.HHCL 14:57
PROVIDERS: Visit Provider Internal Medicine Geriatric Medicine
DX: E11.65 Type 2 diabetes mellitus with hyperglycemia (principal); M25.562 Pain in left knee; G89.29 Other chronic pain; M17.12 Unilateral primary osteoarthritis, left knee
CPT/HCPCS: 36415; 80053; 80061; 82043; 82570; 85025; 86803; 87389

== ENCOUNTER 2024-09-20 09:24 | Inpatient (IN) | payer MEDICAID, SELFPAY ==
[2024-09-20] VITALS (7 sets, daily range): BP systolic 96–149; BP diastolic 52–76; PULSE 64–80; RESP 12–20; TEMP 36.2–36.7; O2SAT 94–98; BMI 31.2
[2024-09-20 10:15] LABS: Glucose, Whole Blood 55 mg/dL (60-115)
[2024-09-20 10:15] LABS: Glucose, Whole Blood 52 mg/dL (60-115)
--- NOTE | 2024-09-20 10:21 | ED_ITS ---
HPI - Psych General Chief Complaint: ETOH/Substance Use Stated Complaint: FOUND BY PD NODDING ON/OFF PER EMS Time Seen by Provider: 09/20/24 09:44 Source: patient, EMS, old records reviewed and property staff accountant Mode of arrival: EMS Limitations: other (sleepy but easily woken) History of Present Illness ED Provider: YOANA HPI Narrative: 52 yo female with PMH of DM but states no medications today along and did not eat breakfast. She was due in housing court today but smoked THC off the street. The next thing she knew she was in the ED. EMS found her nodding off sitting on outside step. No narcan given. No head trauma. She states she isn't sure what happened. Very somnolent but wakes to verbal and tactile stimuli. Onset (ago): day(s) (this AM) Duration: constant Relieving factors: none Exacerbating factors: drug use Context: recent drug abuse Associated psychiatric symptoms: none Associated symptoms: denies other symptoms Related Data Home Medications ?Medication ?Instructions ?Recorded ?Confirmed albuterol sulfate 90 mcg/actuation 2 puff PO QID PRN 0 06/18/21 aerosol inhaler (ProAir HFA) budesonide-formoterol HFA 80 2 puff PO 06/18/21 mcg-4.5 mcg/actuation aerosol inhaler (Symbicort) buspirone 7.5 mg tablet 7.5 mg PO BID 06/18/21 diclofenac sodium 1 % topical gel 2 g topical BID 05/07 dulaglutide 0.75 mg/0.5 mL mg subcut QWEEK 06/18/21 subcutaneous pen injector (Trulicity) duloxetine 20 mg capsule,delayed 20 mg PO DAILY release duloxetine 60 mg capsule,delayed 60 mg PO DAILY release fluticasone propionate 110 1 puff PO BID 06/18/21 mcg/actuation HFA aerosol inhaler (Flovent HFA) gabapentin 300 mg capsule 300 mg PO TID 06/18/21 glipizide 5 mg tablet 2.5 mg PO BID 06/18/21 insulin glargine 100 unit/mL (3 30 unit subcut BEDTIME 06/18/21 mL) subcutaneous pen (Lantus Solostar U-100 Insulin) losartan 50 mg tablet 50 mg PO DAILY 06/18/21 mirtazapine 7.5 mg tablet 7.5 mg PO BEDTIME 06/18/21 montelukast 10 mg tablet 10 mg PO QPM 06/18/21 quetiapine 25 mg tablet 25 mg PO BEDTIME 06/18/21 Previous Rx's ?Medication ?Instructions ?Recorded clotrimazole-betamethasone 1 1 appl topical BID PRN it margaret 7 06/18/21 %-0.05 % topical cream days #45 grams Allergies Allergy/AdvReac Type Severity Reaction Status Date / Time sulfamethoxazole (From Allergy Intermediate LIP Verified 06/18/21 15:10 BACTRIM) SWELLING soap (SOAP) Allergy Mild HIVES (TO Verified 06/18/21 15:10 IVORY SOAP) Sulfa (Sulfonamide Allergy Unknown Unknown Verified 06/18/21 15:10 Antibiotics) prednisone (PREDNISONE) AdvReac Intermediate bruising Verified 06/18/21 15:10 ivory soap Allergy Unknown hives Uncoded 07/27/13 00:00 Review of Systems 2 Review of Systems: Constitutional : No Fever, No Chills, No Fatigue ENT/Mouth : No sore throat, No Rhinorrhea Eyes: No Eye Pain, No Swelling, No Redness Cardiovascular : No Chest Pain, No SOB, No Dyspnea on Exertion Respiratory : No Cough, No Sputum Gastrointestinal : No Nausea, No Vomiting, No Diarrhea, No abdominal Pain Genitourinary : No Dysuria, No Urinary Frequency, No Hematuria, Musculoskeletal : No joint pain, No Myalgias, No Joint Swelling Skin : No Skin Lesions, No rash Neuro : No Weakness, No Numbness, No Dizziness, no Headache All other systems reviewed and are negative [facility] Past Medical History Attestation statement: The following information was validated with the patient. Source: old records reviewed Medical History Interstitial cystitis Depression Insomnia Diabetes Surgical History Tubal ligation status Hx of appendectomy Social History Social History (Updated 09/20/24 @ 10:29 by Mounika Salas DO) Patient Tobacco Use Status: Tobacco use Unknown Do you have a plan to hurt others: No Plan Patient : No Physical Exam 2 Vital Signs: Vital Signs: Last Vital Signs Temp 97.2 F 09/20/24 10:28 Pulse 73 09/20/24 11:57 Resp 12 09/20/24 11:57 BP 107/67 09/20/24 11:57 Pulse Ox 97 09/20/24 11:57 O2 Del Method Room Air 09/20/24 11:57 BMI result Body Mass Index 31.2 Appearance: somnolent but easily woken by voice and tactile stimuli. Oriented X3. No acute distress. Eyes: Pupils pinpoint ENT: Pharynx normal. atrauamtic Neck: Normal inspection. Neck supple. CVS: Normal heart rate and rhythm. Pulses normal. Respiratory: No respiratory distress. Breath sounds normal. Abdomen: Soft and nontender. Skin: Skin warm and dry. Normal skin color. Normal skin turgor. Extremities: No lower extremity edema. Neuro: Oriented X 3. No motor deficit. No sensory deficit. CN2-12 intact Course Course Course Narrative: no real improvement with BS in 200s suspect this is substance abuse related Reevaluation(s) Reevaluation #1: 242pm became more sleepy again and sweaty BS 42 - swears she did not take her medications this AM will redose with dextrose and if no improvement will consider narcan at this time patient is trying to eat but she is still sleepy her pupils are pinpoint she is only on tresiba - she last took it last night she is adamant she has not taken any insulin or medications this AM Medications Administered Discontinued Medications Generic Name Dose Route Start Last Admin Trade Name Freq PRN Reason Stop Dose Admin Dextrose 25 gm 09/20/24 10:37 09/20/24 10:48 Dextrose 50 % 25 Gm/50 Ml Syringe IVPUSH 09/20/24 10:38 25 gm ONCE ONE Administration Dextrose 25 gm 09/20/24 14:41 09/20/24 14:46 Dextrose 50 % 25 Gm/50 Ml Syringe IVPUSH 09/20/24 14:42 25 gm ONCE ONE Administration Medical Decision Making Medical Decision Making [facility] Narrative: 52 yo female with PMH of DM who comes in after being found sleepy on outside stairs. She has no signs of head trauma. She states she was fine until smoking THC off the street today. Will need blood sugar monitoring. She denies infectious symptoms. Suspect low BS vs drug use. Chart review shows prior heroin overdose back in 2021 Differential Diagnosis Differential Diagnoses: The differential diagnosis associated with the presentation includes hypoglycemia, drug use Admission/Observation Consideration of admission/observation: Escalation of care including admission/observation considered given two bouts of hypoglycemia will admit for observation Consult Healthcare Provider Management of the patient was discussed with: Hospitalist (will admit) and Behavioral Health Provider Lab Data MDM Lab Attestation statement: I reviewed the patient's lab results. 09/20/24 10:46 09/20/24 10:46 Labs: Lab Results 09/20/24 09/20/24 09/20/24 Range/Units 09:37 10:12 10:46 WBC 9.2 (4.8-10.8) X10*3/uL RBC 4.49 (4.20-5.50) X10*6/uL Hgb 12.7 (12.0-16.0) g/dl Hct 40.3 (37.0-47.0) % MCV 89.8 (80.0-98.0) fL MCH 28.3 (27.0-33.0) pg MCHC 31.5 (31.0-35.0) g/dl RDW 13.1 (11.0-16.0) % Plt Count 235 (160-400) X10*3/uL MPV 9.9 (9.4-12.3) fL Immature Gran % (Auto) 0.3 (0.0-0.4) % Neut % (Auto) 69.5 (45-73) % Lymph % (Auto) 17.8 L (20-40) % [place] % (Auto) 9.5 (2-11) % Eos % (Auto) 2.4 (0-4) % Baso % (Auto) 0.5 (0-2) % Lymph # (Auto) 1.6 (1.2-4.9) X10*3/uL [place] # (Auto) 0.9 (0.1-1.2) X10*3/uL Eos # (Auto) 0.2 (0.0-0.4) X10*3/uL Baso # (Auto) 0.1 (0.0-0.2) X10*3/uL Abs Immat Gran (auto) 0.03 (0.00-0.03) X10*3/uL Absolute Neuts (auto) 6.4 (2.0-8.3) x10*3/uL Absolute Nucleated RBC 0.000 (0.0-0.012) X10*3/uL Nucleated RBC % (auto) 0.0 (0.0-0.2) /100WBC Sodium 143 (135-145) mmol/L Potassium 4.2 (3.3-5.1) mmol/L Chloride 110 H (96-108) mmol/L Carbon Dioxide 26 (22-29) mmol/L Anion Gap 11 L (12-20) BUN 17 H (9-16) mg/dL Creatinine 1.06 (0.5-1.4) mg/dL Estim Creat Clear Calc 48.9 Estimated GFR 53 POC Glucose 52 L* 55 L* (60-115) mg/dL Random Glucose 76 (60-115) mg/dL Calcium 9.4 (8.4-10.2) mg/dL 09/20/24 09/20/24 Range/Units 11:11 14:40 WBC (4.8-10.8) X10*3/uL RBC (4.20-5.50) X10*6/uL Hgb (12.0-16.0) g/dl Hct (37.0-47.0) % MCV (80.0-98.0) fL MCH (27.0-33.0) pg MCHC (31.0-35.0) g/dl RDW (11.0-16.0) % Plt Count (160-400) X10*3/uL MPV (9.4-12.3) fL Immature Gran % (Auto) (0.0-0.4) % Neut % (Auto) (45-73) % Lymph % (Auto) (20-40) % [place] % (Auto) (2-11) % Eos % (Auto) (0-4) % Baso % (Auto) (0-2) % Lymph # (Auto) (1.2-4.9) X10*3/uL [place] # (Auto) (0.1-1.2) X10*3/uL Eos # (Auto) (0.0-0.4) X10*3/uL Baso # (Auto) (0.0-0.2) X10*3/uL Abs Immat Gran (auto) (0.00-0.03) X10*3/uL Absolute Neuts (auto) (2.0-8.3) x10*3/uL Absolute Nucleated RBC (0.0-0.012) X10*3/uL Nucleated RBC % (auto) (0.0-0.2) /100WBC Sodium (135-145) mmol/L Potassium (3.3-5.1) mmol/L Chloride (96-108) mmol/L Carbon Dioxide (22-29) mmol/L Anion Gap (12-20) BUN (9-16) mg/dL Creatinine (0.5-1.4) mg/dL Estim Creat Clear Calc Estimated GFR POC Glucose 214 H 42 L* (60-115) mg/dL Random Glucose (60-115) mg/dL Calcium (8.4-10.2) mg/dL Independent Historian Clinical information obtained from an independent historian. History obtained from or confirmed by: EMS External Record Review External record reviewed: Outpatient record Critical Care Time Critical Care Time Critical Care Time: Yes Total Critical Care Time: 45 Attestation: Time is exclusive of separately billable procedures. Time includes: direct patient care, patient reassessment, coordination of patient care, interpretation of data (laboratory data, pulse oximetry)), review of patient's medical records, medical consultation and documentation of patient care. repeat IV dextrose bolus for hypoglycemia. Procedures excluded from critical care time: electrocardiography. I attest to this time spent taking care of the patient Discharge Plan Discharge Clinical Impression: Hypoglycemia, Substance abuse Patient Disposition: Admitted As Inpatient Print Language: Telugu
--- NOTE | 2024-09-20 10:30 | PC.NURSE ---
64 F presents to ED d/t falling asleep on steps outdoors, found by PD. Pt admits to marijuana use this morning, may have been laced. Pt was very lethargic upon arrival, a little more awake now. RR even and unlabored, denies SOB or CP.
[2024-09-20 10:51] LABS: MANUAL DIFF FLAG NO
[2024-09-20 10:58] LABS: Hematocrit 40.3 % (37.0-47.0); Hemoglobin 12.7 g/dl (12.0-16.0); Imm Gran Abs Auto 0.03 X10*3/uL (0.00-0.03); Imm Gran Pct Auto 0.3 % (0.0-0.4); Lymphocytes Absolute Auto 1.6 X10*3/uL (1.2-4.9); Mean Corpuscular HGB Conc 31.5 g/dl (31.0-35.0); Mean Corpuscular Hemoglobin 28.3 pg (27.0-33.0); Mean Corpuscular Volume 89.8 fL (80.0-98.0); NRBC Abs Auto 0.000 X10*3/uL (0.0-0.012); NRBC Pct Auto 0.0 /100WBC (0.0-0.2); Platelet Count 235 X10*3/uL (160-400); Red Blood Count 4.49 X10*6/uL (4.20-5.50); White Blood Count 9.2 X10*3/uL (4.8-10.8)
[2024-09-20 11:08] LABS: Anion Gap 11 (12-20); Blood Urea Nitrogen 17 mg/dL (9-16); Calcium 9.4 mg/dL (8.4-10.2); Carbon Dioxide 26 mmol/L (22-29); Chloride 110 mmol/L (96-108); Creatinine Clr Calc Pharmacy 48.9; Estimated Glomerular Filt Rate 53; Potassium 4.2 mmol/L (3.3-5.1); Sodium 143 mmol/L (135-145)
[2024-09-20 11:15] LABS: Glucose, Whole Blood 214 mg/dL (60-115)
--- NOTE | 2024-09-20 11:25 | PC.NURSE ---
BS 214, patient remains lethargic but arousable to verbal or tactile stimuli
[2024-09-20 14:46] LABS: Glucose, Whole Blood 42 mg/dL (60-115)
[2024-09-20 15:21] LABS: Glucose, Whole Blood 212 mg/dL (60-115)
[2024-09-20] MEDS: Dextrose 10 % 1,000 ML 50 ML IVCONT (15:24)
--- NOTE | 2024-09-20 16:24 | PM.IMHP ---
History of Present Illness Date of Service: 09/20/24 Attending physician on admission: Alexander Cervantes Chief Complaint: Altered mental status Jaycee Hankins is a 64 years old woman with past medical history significant for type 2 diabetes on Tresiba and opiate use disorder on methadone was brought to the emergency department as he was found to be unresponsive. She was found to have significant hypoglycemia. She has complained of generalized weakness. Patient is now alert and oriented and said that the last time she used Tresiba was last night. Patient said that the last time she remembers was that she was supposed to go to court today. She denied any headache, dizziness, palpitations, headache, chest pain, shortness on breath, abdominal pain, nausea, vomiting or diarrhea. She denied illicit drug use. Smokes tobacco at times and denied alcohol abuse. Denies suicidal attempt. In the ED, she was found to have stable vital signs. Blood glucose was initially 42. Last blood glucoses are 212 and 246. There are no electrolyte imbalances. BUN is 17 and creatinine 1.06. ED tx: D50 50 g IV push total, IV fluids: D10 at 50 mL/hour. Review of Systems Review of Systems: All 12 systems were reviewed and normal except as noted in HPI. [facility] Medical History Interstitial cystitis Depression Insomnia Diabetes Surgical History Tubal ligation status Hx of appendectomy Social History (Updated 09/20/24 @ 10:29 by Mounika Salas DO) Patient Tobacco Use Status: Tobacco use Unknown Advance Directives: No Advance Directives Information Provided: No Do you have a plan to hurt others: No Plan Patient : No Meds Allergies Allergy/AdvReac Type Severity Reaction Status Date / Time sulfamethoxazole (From Allergy Intermediate LIP Verified 06/18/21 15:10 BACTRIM) SWELLING soap (SOAP) Allergy Mild HIVES (TO Verified 06/18/21 15:10 IVORY SOAP) Sulfa (Sulfonamide Allergy Unknown Unknown Verified 06/18/21 15:10 Antibiotics) prednisone (PREDNISONE) AdvReac Intermediate bruising Verified 06/18/21 15:10 ivory soap Allergy Unknown hives Uncoded 07/27/13 00:00 Active Medications: Current Medications Acetaminophen (Acetaminophen 325 Mg Tablet) 975 mg PO Q6H PRN PRN Reason: Pain, Mild 1-3,fever,headache Calcium Carbonate (Calcium Carbonate 750 Mg Tab.Chew) 750 mg PO Q4H PRN PRN Reason: Heartburn Enoxaparin Sodium (Enoxaparin Sodium 40 Mg/0.4 Ml Syringe) 40 mg SUBCUT Q24H [facility] Dextrose (D10) 1,000 mls @ 50 mls/hr IVCONT .Q20H PAYAL Last Admin: 09/20/24 15:24 Dose: 50 mls/hr Magnesium Hydroxide (Milk Of Magnesia 30 Ml Oral.Susp) 30 ml PO DAILY PRN PRN Reason: Constipation Melatonin (Melatonin 3 Mg Tablet) 6 mg PO BEDTIME PRN PRN Reason: Insomnia Sodium Chloride (0.9 % Sodium Chloride Flush 3 Ml Syringe) 3 ml IVFLUSH QSHIFT [facility] Home Medications ?Medication ?Instructions ?Recorded ?Confirmed ?Last Taken ?Type budesonide-formoterol HFA 80 2 puff PO BID 06/18/21 09/20/24 Unknown History mcg-4.5 mcg/actuation aerosol inhaler (Symbicort) buspirone 7.5 mg tablet 7.5 mg PO BID 06/18/21 09/20/24 Unknown History gabapentin 300 mg capsule 300 mg PO TID 06/18/21 09/20/24 Unknown History losartan 50 mg tablet 50 mg PO DAILY 06/18/21 09/20/24 Unknown History montelukast 10 mg tablet 10 mg PO QPM 06/18/21 09/20/24 Unknown History aspirin 81 mg chewable tablet 1 tab PO DAILY 09/20/24 09/20/24 Unknown History atorvastatin 40 mg tablet 40 mg PO DAILY 09/20/24 09/20/24 Unknown History insulin degludec 200 unit/mL (3 56 unit subcut BEDTIME 09/20/24 09/20/24 Unknown History mL) subcutaneous pen (Tresiba FlexTouch U-200 insulin) methadone 10 mg/mL oral 90 mg PO DAILY 09/20/24 Unknown History concentrate (Methadone Intensol) venlafaxine 75 mg capsule,extended 75 mg PO DAILY 09/20/24 09/20/24 Unknown History release 24 hr Physical Exam Vital Signs and Narrative: Vital Signs: Last Vital Signs Temp 97.2 F 09/20/24 10:28 Pulse 76 09/20/24 15:55 Resp 18 09/20/24 15:55 BP 107/65 09/20/24 15:55 Pulse Ox 96 09/20/24 15:55 O2 Del Method Room Air 09/20/24 15:55 BMI result Body Mass Index 31.2 Constitutional - Awake and Alert, No apparent distress HEENT - PER, EOMI Heart - RRR, No edema Lungs - Normal lung expansion, Normal respiratory effort, No respiratory distress, CTA bilaterally Abdomen - NT / ND; +BS; No rebound or guarding Extremities - no calf tenderness bilaterally, no swelling Musculoskeletal - Normal inspection, normal ROM Skin - Warm/Dry Neurological - Alert & oriented x3. Moving all extremities spontaneously. Normal speech. Psychological - Depressed affect Results Labs 09/20/24 10:46 09/20/24 10:46 Labs: Laboratory Results - last 24 hr 09/20/24 09/20/24 09/20/24 09:37 10:12 10:46 MCV 89.8 MCH 28.3 MCHC 31.5 RDW 13.1 Plt Count 235 MPV 9.9 Immature Gran % (Auto) 0.3 Neut % (Auto) 69.5 Lymph % (Auto) 17.8 L [place] % (Auto) 9.5 Eos % (Auto) 2.4 Baso % (Auto) 0.5 Lymph # (Auto) 1.6 [place] # (Auto) 0.9 Eos # (Auto) 0.2 Baso # (Auto) 0.1 Abs Immat Gran (auto) 0.03 Absolute Neuts (auto) 6.4 Absolute Nucleated RBC 0.000 Nucleated RBC % (auto) 0.0 Anion Gap 11 L Estim Creat Clear Calc 48.9 Estimated GFR 53 POC Glucose 52 L* 55 L* Random Glucose 76 Calcium 9.4 09/20/24 09/20/24 09/20/24 11:11 14:40 15:16 MCV MCH MCHC RDW Plt Count MPV Immature Gran % (Auto) Neut % (Auto) Lymph % (Auto) [place] % (Auto) Eos % (Auto) Baso % (Auto) Lymph # (Auto) [place] # (Auto) Eos # (Auto) Baso # (Auto) Abs Immat Gran (auto) Absolute Neuts (auto) Absolute Nucleated RBC Nucleated RBC % (auto) Anion Gap Estim Creat Clear Calc Estimated GFR POC Glucose 214 H 42 L* 212 H Random Glucose Calcium Assessment and Plan (1) Hypoglycemia: Status: Acute (2) Essential hypertension: Status: Acute (3) Acute metabolic encephalopathy due to hypoglycemia: Status: Acute Plan Jaycee Hankins is a 64 years old woman with past medical history significant for type 2 diabetes on Tresiba and opiate use disorder on methadone Acute metabolic encephalopathy secondary to hypoglycemia, improving. Hold Tresiba. Continue IV fluids, D10 at 50 mL/hour. Continue to monitor blood glucose every 2 hours for now. Essential hypertension. Continue losartan. Hyperlipidemia. Continue atorvastatin. Mood disorder. Continue Effexor and BuSpar. Opiate use disorder. Continue methadone 90 mg p.o. daily. COPD. Continue Symbicort and montelukast. Code status: Full. DVT prophylaxis: Lovenox Patient will need hospitalization for at least 2 midnights for hypoglycemia; she will continuous continue monitoring of blood glucose and IV infusion of D10. Quality Stroke Does the patient have a stroke diagnosis?: No VTE Prior VTE?: No VTE Risk Level:: Medical - moderate - high VTE Device Contraindication: Treatment Not Indicated VTE Drug Contraindication: N/A - Med Ordered
[2024-09-20 16:28] LABS: Glucose, Whole Blood 246 mg/dL (60-115)
[2024-09-20 17:05] LABS: Glucose, Whole Blood 214 mg/dL (60-115)
--- NOTE | 2024-09-20 18:52 | PHA.MEDREC ---
Pharmacy Consult ? Medication Reconciliation Pharmacy has completed the medication reconciliation.
--- NOTE | 2024-09-20 20:13 | PC.NURSE ---
Addendum entered by Iman Tejeda RN 09/21/24 02:33: Pt POC 248, MD Mills aware, no new orders at this time, continue q4h POC. Addendum entered by Iman Tejeda RN 09/21/24 01:58: Pt POC 57, pt given D50 per mar, recheck POC in 15min. pt also given crackers and orange juice. Addendum entered by Iman Tejeda RN 09/20/24 20:23: entered in error last POC 214. Original Note: assumed care forpt at 1900. pt awake and alert in stretcher eating dinner, stating she feels very tired still. pt noted to have d10 drip running. EDT alerted this RN POC was 299, d10 drip paused, aware. q4h POC ordered. Pt updated on plan of care.
[2024-09-20 21:43] LABS: Glucose, Whole Blood 190 mg/dL (60-115)
[2024-09-20 22:30] LABS: Appearance Urine Cloudy; Glucose Urine UA 500 mg/dL (Negative); PH 6.0 (5.0-9.0); Specific Gravity - Urine 1.025 (1.005-1.025)
[2024-09-20 22:44] LABS: Cannabinoid Screen Urine POSITIVE (Not Detect)
[2024-09-21] VITALS (7 sets, daily range): BP systolic 131–158; BP diastolic 67–79; PULSE 64–78; RESP 13–20; TEMP 36.2–36.6; O2SAT 95–98
[2024-09-21 01:51] LABS: Glucose, Whole Blood 57 mg/dL (60-115)
[2024-09-21 02:22] LABS: Glucose, Whole Blood 248 mg/dL (60-115)
[2024-09-21 05:56] LABS: MANUAL DIFF FLAG NO
[2024-09-21 06:06] LABS: Hematocrit 39.2 % (37.0-47.0); Hemoglobin 13.0 g/dl (12.0-16.0); Imm Gran Abs Auto 0.03 X10*3/uL (0.00-0.03); Imm Gran Pct Auto 0.3 % (0.0-0.4); Lymphocytes Absolute Auto 2.0 X10*3/uL (1.2-4.9); Mean Corpuscular HGB Conc 33.2 g/dl (31.0-35.0); Mean Corpuscular Hemoglobin 29.0 pg (27.0-33.0); Mean Corpuscular Volume 87.5 fL (80.0-98.0); NRBC Abs Auto 0.000 X10*3/uL (0.0-0.012); NRBC Pct Auto 0.0 /100WBC (0.0-0.2); Platelet Count 261 X10*3/uL (160-400); Red Blood Count 4.48 X10*6/uL (4.20-5.50); White Blood Count 9.4 X10*3/uL (4.8-10.8)
[2024-09-21 06:13] LABS: Glucose, Whole Blood 278 mg/dL (60-115)
[2024-09-21 06:30] LABS: Anion Gap 13 (12-20); Blood Urea Nitrogen 12 mg/dL (9-16); Calcium 9.3 mg/dL (8.4-10.2); Carbon Dioxide 25 mmol/L (22-29); Chloride 106 mmol/L (96-108); Creatinine Clr Calc Pharmacy 62.5; Estimated Glomerular Filt Rate > 60; Magnesium 1.8 mg/dL (1.6-2.6); Potassium 4.7 mmol/L (3.3-5.1); Sodium 139 mmol/L (135-145)
[2024-09-21 07:07] LABS: Hemoglobin A1C 284.5097 umol/L; Total Hemoglobin (HGBA1C) 3372.0611 umol/L
[2024-09-21] MEDS: Fluticasone/Vilanterol 100/25 BLST.W.DEV 1 PUFF INHALE (08:27)
[2024-09-21] MEDS: 0.9 % Sodium Chloride Flush 3 ML SYRINGE IVFLUSH ×3 (08:56→21:10)
[2024-09-21] MEDS: Venlafaxine HCl ER 75 MG CAP.ER.24H PO (08:57)
[2024-09-21 10:25] LABS: Glucose, Whole Blood 197 mg/dL (60-115)
[2024-09-21 10:30] LABS: Glucose, Whole Blood 72 mg/dL (60-115)
--- NOTE | 2024-09-21 12:41 | HE.PHANOTE ---
Methadone Pt last received 90mg on 09/13/24 with 6 [facility] ([phone]), per SOPHIE Vergara, at facility.
--- NOTE | 2024-09-21 12:57 | HO.PM.IMPN ---
Subjective Subjective Date of Service: 09/21/24 Interval History: BG 57 overnight, currently 197 denies drug abuse despite Utox results Review of Systems Review of Systems: Yes all other systems are reviewed and are negative Physical Exam Vital Signs: Vital Signs: Last Vital Signs Temp 97.9 F 09/21/24 05:09 Pulse 64 09/21/24 12:08 Resp 14 09/21/24 12:08 BP 131/67 09/21/24 12:08 Pulse Ox 95 09/21/24 12:08 O2 Del Method Room Air 09/21/24 12:08 BMI result Body Mass Index 31.2 Gen: in no acute distress HEENT: sclera anicteric, moist mucus membranes Neck: supple Lungs: clear to auscultation bilaterally Heart: regular rate and rhythm, no murmurs Abd: soft, non-tender, non-distended Ext: no edema Skin: warm/well-perfused Neuro: alert and oriented x3, no focal findings Psych: restricted affect Objective Data Active Medications Acetaminophen (Acetaminophen 325 Mg Tablet) 975 mg PO Q6H PRN PRN Reason: Pain, Mild 1-3,fever,headache Aspirin (Aspirin 81 Mg Tab.Chew) 81 mg PO DAILY [facility] Last Admin: 09/21/24 09:04 Dose: 81 mg Documented By: LAVERNE Atorvastatin Calcium (Atorvastatin Calcium 40 Mg Tablet) 40 mg PO DAILY [facility] Last Admin: 09/21/24 08:58 Dose: 40 mg Documented By: LAVERNE Buspirone HCl (Buspirone Hcl 5 Mg Tablet) 7.5 mg PO BID [facility] Last Admin: 09/21/24 08:57 Dose: 7.5 mg Documented By: LAVERNE Calcium Carbonate (Calcium Carbonate 750 Mg Tab.Chew) 750 mg PO Q4H PRN PRN Reason: Heartburn Dextrose (Dextrose 50 % 25 Gm/50 Ml Syringe) 25 gm IVPUSH Q15M PRN; Protocol PRN Reason: per Hypoglycemia Standing Ord. Last Admin: 09/21/24 01:56 Dose: 25 gm Documented By: VANDANA Enoxaparin Sodium (Enoxaparin Sodium 40 Mg/0.4 Ml Syringe) 40 mg SUBCUT Q24H [facility] Last Admin: 09/21/24 09:02 Dose: 40 mg Documented By: LAVERNE Fluticasone/Vilanterol (Fluticasone/Vilanterol 100/25 Blst.W.Dev) 1 puff INHALE RDAILY [facility] Last Admin: 09/21/24 08:27 Dose: 1 puff Documented By: OTTO Gabapentin (Gabapentin 300 Mg Capsule) 300 mg PO TID [facility] Last Admin: 09/21/24 08:58 Dose: 300 mg Documented By: LAVERNE Glucose (Glucose Gel 15 Gm Gel..Gram.) 15 gm PO Q15M PRN; Protocol PRN Reason: per Hypoglycemia Standing Ord. Losartan Potassium (Losartan Potassium 50 Mg Tablet) 50 mg PO DAILY [facility]; Protocol Last Admin: 09/21/24 08:57 Dose: 50 mg Documented By: LAVERNE Magnesium Hydroxide (Milk Of Magnesia 30 Ml Oral.Susp) 30 ml PO DAILY PRN PRN Reason: Constipation Melatonin (Melatonin 3 Mg Tablet) 6 mg PO BEDTIME PRN PRN Reason: Insomnia Methadone HCl (Methadone Hcl 20 Mg/2 Ml Oral.Conc) 90 mg PO DAILY@0800 [facility] Montelukast Sodium (Montelukast Sodium 10 Mg Tablet) 10 mg PO BEDTIME [facility] Last Admin: 09/20/24 21:41 Dose: 10 mg Documented By: VANDANA Sodium Chloride (0.9 % Sodium Chloride Flush 3 Ml Syringe) 3 ml IVFLUSH QSHIFT [facility] Last Admin: 09/21/24 08:56 Dose: 3 ml Documented By: LAVERNE Venlafaxine HCl (Venlafaxine Hcl Er 75 Mg Cap.Er.24h) 75 mg PO DAILY [facility] Last Admin: 09/21/24 08:57 Dose: 75 mg Documented By: LAVERNE Labs 09/21/24 05:36 09/21/24 05:36 Labs: Laboratory Results - last 24 hr 09/20/24 09/20/24 09/20/24 10:34 14:40 15:16 MCV MCH MCHC RDW Plt Count MPV Immature Gran % (Auto) Neut % (Auto) Lymph % (Auto) [place] % (Auto) Eos % (Auto) Baso % (Auto) Lymph # (Auto) [place] # (Auto) Eos # (Auto) Baso # (Auto) Abs Immat Gran (auto) Absolute Neuts (auto) Absolute Nucleated RBC Nucleated RBC % (auto) Anion Gap Estim Creat Clear Calc Estimated GFR POC Glucose 72 42 L* 212 H Random Glucose Estimat Average Glucose Hemoglobin A1c % Calcium Magnesium Urine Color Urine Appearance Urine pH Ur Specific [place] Urine Protein Urine Glucose (UA) Urine Ketones Urine Blood Urine Nitrite Ur Leukocyte Esterase Urine Opiates Screen Ur Buprenorphine Scrn Ur Oxycodone Screen Urine Methadone Screen Urine Fentanyl Screen Ur Barbiturates Screen Ur Phencyclidine Scrn Ur Amphetamines Screen U Benzodiazepines Scrn Urine Cocaine Screen U Marijuana (THC) Screen 09/20/24 09/20/24 09/20/24 16:25 17:02 21:40 MCV MCH MCHC RDW Plt Count MPV Immature Gran % (Auto) Neut % (Auto) Lymph % (Auto) [place] % (Auto) Eos % (Auto) Baso % (Auto) Lymph # (Auto) [place] # (Auto) Eos # (Auto) Baso # (Auto) Abs Immat Gran (auto) Absolute Neuts (auto) Absolute Nucleated RBC Nucleated RBC % (auto) Anion Gap Estim Creat Clear Calc Estimated GFR POC Glucose 246 H 214 H 190 H Random Glucose Estimat Average Glucose Hemoglobin A1c % Calcium Magnesium Urine Color Urine Appearance Urine pH Ur Specific [place] Urine Protein Urine Glucose (UA) Urine Ketones Urine Blood Urine Nitrite Ur Leukocyte Esterase Urine Opiates Screen Ur Buprenorphine Scrn Ur Oxycodone Screen Urine Methadone Screen Urine Fentanyl Screen Ur Barbiturates Screen Ur Phencyclidine Scrn Ur Amphetamines Screen U Benzodiazepines Scrn Urine Cocaine Screen U Marijuana (THC) Screen 09/20/24 09/21/24 09/21/24 22:22 01:47 02:18 MCV MCH MCHC RDW Plt Count MPV Immature Gran % (Auto) Neut % (Auto) Lymph % (Auto) [place] % (Auto) Eos % (Auto) Baso % (Auto) Lymph # (Auto) [place] # (Auto) Eos # (Auto) Baso # (Auto) Abs Immat Gran (auto) Absolute Neuts (auto) Absolute Nucleated RBC Nucleated RBC % (auto) Anion Gap Estim Creat Clear Calc Estimated GFR POC Glucose 57 L* 248 H Random Glucose Estimat Average Glucose Hemoglobin A1c % Calcium Magnesium Urine Color Yellow Urine Appearance Cloudy Urine pH 6.0 Ur Specific [place] 1.025 Urine Protein Negative Urine Glucose (UA) 500 H Urine Ketones Negative Urine Blood Negative Urine Nitrite Negative Ur Leukocyte Esterase Negative Urine Opiates Screen POSITIVE H Ur Buprenorphine Scrn Not Detected Ur Oxycodone Screen Not Detected Urine Methadone Screen Positive H Urine Fentanyl Screen POSITIVE H Ur Barbiturates Screen Not Detected Ur Phencyclidine Scrn Not Detected Ur Amphetamines Screen Not Detected U Benzodiazepines Scrn Not Detected Urine Cocaine Screen POSITIVE H U Marijuana (THC) Screen POSITIVE H 09/21/24 09/21/24 09/21/24 05:36 06:09 10:21 MCV 87.5 MCH 29.0 MCHC 33.2 RDW 13.2 Plt Count 261 MPV 10.3 Immature Gran % (Auto) 0.3 Neut % (Auto) 69.7 Lymph % (Auto) 20.8 [place] % (Auto) 6.9 Eos % (Auto) 2.1 Baso % (Auto) 0.2 Lymph # (Auto) 2.0 [place] # (Auto) 0.7 Eos # (Auto) 0.2 Baso # (Auto) 0.0 Abs Immat Gran (auto) 0.03 Absolute Neuts (auto) 6.6 Absolute Nucleated RBC 0.000 Nucleated RBC % (auto) 0.0 Anion Gap 13 Estim Creat Clear Calc 62.5 Estimated GFR > 60 POC Glucose 278 H 197 H Random Glucose 308 H Estimat Average Glucose 237 Hemoglobin A1c % 9.9 H Calcium 9.3 Magnesium 1.8 Urine Color Urine Appearance Urine pH Ur Specific [place] Urine Protein Urine Glucose (UA) Urine Ketones Urine Blood Urine Nitrite Ur Leukocyte Esterase Urine Opiates Screen Ur Buprenorphine Scrn Ur Oxycodone Screen Urine Methadone Screen Urine Fentanyl Screen Ur Barbiturates Screen Ur Phencyclidine Scrn Ur Amphetamines Screen U Benzodiazepines Scrn Urine Cocaine Screen U Marijuana (THC) Screen Assessment and Plan (1) Hypoglycemia: Status: Acute Plan d2, 64yoF with DM2 on Tresiba, OUD on methadone brought in unresponsive with hypoglycemia hypoglycemia - holding Tresiba, off D10 at this point, continue to monitor BGs; correction-dose lispro HTN - losartan HLD - atorvastatin mood disorder - venlafaxine, buspirone asthma - continue montelukast, Breo OUD - verify methadone dose fentanyl + cocaine abuse - Addiction Medicine consult, screen HBV/HCV/HIV VTE ppx - enoxaparin dispo - eventual home In my clinical judgment, the patient requires continued inpatient hospitalization for the following reasons: hypoglycemia Total time managing care of this patient today: 40 minutes. Quality Stroke Does the patient have a stroke diagnosis?: No VTE Prior VTE?: No VTE Risk Level:: Medical - moderate - high VTE Device Contraindication: Treatment Not Indicated VTE Drug Contraindication: N/A - Med Ordered
--- NOTE | 2024-09-21 13:08 | HO.ADDICT_ITS ---
History of Present Illness Date of Service: 09/21/2024 Chief Complaint: Hypoglycemia Reason for Consult: OUD Sources of Information: patient interviewed and chart reviewed HPI Narrative: Patient is a 64 year old female with history of DM and OUD. Presented to [facility] after being found hunched over outside of a building and minimally responsive to questions. In ED, still slow to respond with pinpoint pupils. Admitted with toxic encephalopathy and hypoglycemia as BS dropped to 57 while in ED. Patient seen in ED this morning, she wakes easily to voice but reports feeling very weak, and can't keep my eyes open . She states that the only thing she recalls is smoking cannabis with someone and heading out [place] and then woke up in our ED. She denies any illicit substance use. States she has been abstinent form opiates for over 2 years. T/W advised patient that UDS was +for fentanyl and cocaine. She reports being engaged in treatment for OUD with [facility]. Methadone dose is 90mg and last dose, per patient was on 09/19/24. When seen by t/w she denied any withdrawal sx, but stated they can take up to 2 days to present for her. She appeared drowsy, but answering questions appropriately. Denies nausea, restlessness or body aches. No diaphoresis noted. Medical Evaluation Reviewed: Yes Review of Systems Constitutional: Reports as per HPI and Reports no additional constitutional complaints Diagnostics Vital Signs (24Hr): Vital Signs - 24 hr 09/20/24 15:55 09/20/24 17:12 09/20/24 21:46 Temperature 98.1 F Pulse Rate 76 77 64 Respiratory Rate 18 18 20 Blood Pressure 107/65 99/52 L 149/76 H Pulse Oximetry 96 95 98 Oxygen Delivery Method Room Air Room Air Room Air 09/21/24 05:09 09/21/24 08:28 09/21/24 08:54 Temperature 97.9 F Pulse Rate 74 76 64 Respiratory Rate 20 16 13 Blood Pressure 158/79 H 158/73 H Pulse Oximetry 98 95 Oxygen Delivery Method Room Air Room Air 09/21/24 08:57 09/21/24 12:08 Temperature Pulse Rate 64 Respiratory Rate 14 Blood Pressure 158/73 H 131/67 Pulse Oximetry 95 Oxygen Delivery Method Room Air BMI result Body Mass Index 31.2 Labs 09/21/24 05:36 09/21/24 05:36 Labs: Laboratory Results - last 48 hr 09/20/24 09/20/24 09/20/24 09:37 10:12 10:34 WBC RBC Hgb Hct MCV MCH MCHC RDW Plt Count MPV Immature Gran % (Auto) Neut % (Auto) Lymph % (Auto) [place] % (Auto) Eos % (Auto) Baso % (Auto) Lymph # (Auto) [place] # (Auto) Eos # (Auto) Baso # (Auto) Abs Immat Gran (auto) Absolute Neuts (auto) Absolute Nucleated RBC Nucleated RBC % (auto) Sodium Potassium Chloride Carbon Dioxide Anion Gap BUN Creatinine Estim Creat Clear Calc Estimated GFR POC Glucose 52 L* 55 L* 72 Random Glucose Estimat Average Glucose Hemoglobin A1c % Calcium Magnesium Urine Color Urine Appearance Urine pH Ur Specific [place] Urine Protein Urine Glucose (UA) Urine Ketones Urine Blood Urine Nitrite Ur Leukocyte Esterase Urine Opiates Screen Ur Buprenorphine Scrn Ur Oxycodone Screen Urine Methadone Screen Urine Fentanyl Screen Ur Barbiturates Screen Ur Phencyclidine Scrn Ur Amphetamines Screen U Benzodiazepines Scrn Urine Cocaine Screen U Marijuana (THC) Screen 09/20/24 09/20/24 09/20/24 10:46 11:11 14:40 WBC 9.2 RBC 4.49 Hgb 12.7 Hct 40.3 MCV 89.8 MCH 28.3 MCHC 31.5 RDW 13.1 Plt Count 235 MPV 9.9 Immature Gran % (Auto) 0.3 Neut % (Auto) 69.5 Lymph % (Auto) 17.8 L [place] % (Auto) 9.5 Eos % (Auto) 2.4 Baso % (Auto) 0.5 Lymph # (Auto) 1.6 [place] # (Auto) 0.9 Eos # (Auto) 0.2 Baso # (Auto) 0.1 Abs Immat Gran (auto) 0.03 Absolute Neuts (auto) 6.4 Absolute Nucleated RBC 0.000 Nucleated RBC % (auto) 0.0 Sodium 143 Potassium 4.2 Chloride 110 H Carbon Dioxide 26 Anion Gap 11 L BUN 17 H Creatinine 1.06 Estim Creat Clear Calc 48.9 Estimated GFR 53 POC Glucose 214 H 42 L* Random Glucose 76 Estimat Average Glucose Hemoglobin A1c % Calcium 9.4 Magnesium Urine Color Urine Appearance Urine pH Ur Specific [place] Urine Protein Urine Glucose (UA) Urine Ketones Urine Blood Urine Nitrite Ur Leukocyte Esterase Urine Opiates Screen Ur Buprenorphine Scrn Ur Oxycodone Screen Urine Methadone Screen Urine Fentanyl Screen Ur Barbiturates Screen Ur Phencyclidine Scrn Ur Amphetamines Screen U Benzodiazepines Scrn Urine Cocaine Screen U Marijuana (THC) Screen 09/20/24 09/20/24 09/20/24 15:16 16:25 17:02 WBC RBC Hgb Hct MCV MCH MCHC RDW Plt Count MPV Immature Gran % (Auto) Neut % (Auto) Lymph % (Auto) [place] % (Auto) Eos % (Auto) Baso % (Auto) Lymph # (Auto) [place] # (Auto) Eos # (Auto) Baso # (Auto) Abs Immat Gran (auto) Absolute Neuts (auto) Absolute Nucleated RBC Nucleated RBC % (auto) Sodium Potassium Chloride Carbon Dioxide Anion Gap BUN Creatinine Estim Creat Clear Calc Estimated GFR POC Glucose 212 H 246 H 214 H Random Glucose Estimat Average Glucose Hemoglobin A1c % Calcium Magnesium Urine Color Urine Appearance Urine pH Ur Specific [place] Urine Protein Urine Glucose (UA) Urine Ketones Urine Blood Urine Nitrite Ur Leukocyte Esterase Urine Opiates Screen Ur Buprenorphine Scrn Ur Oxycodone Screen Urine Methadone Screen Urine Fentanyl Screen Ur Barbiturates Screen Ur Phencyclidine Scrn Ur Amphetamines Screen U Benzodiazepines Scrn Urine Cocaine Screen U Marijuana (THC) Screen 09/20/24 09/20/24 09/21/24 21:40 22:22 01:47 WBC RBC Hgb Hct MCV MCH MCHC RDW Plt Count MPV Immature Gran % (Auto) Neut % (Auto) Lymph % (Auto) [place] % (Auto) Eos % (Auto) Baso % (Auto) Lymph # (Auto) [place] # (Auto) Eos # (Auto) Baso # (Auto) Abs Immat Gran (auto) Absolute Neuts (auto) Absolute Nucleated RBC Nucleated RBC % (auto) Sodium Potassium Chloride Carbon Dioxide Anion Gap BUN Creatinine Estim Creat Clear Calc Estimated GFR POC Glucose 190 H 57 L* Random Glucose Estimat Average Glucose Hemoglobin A1c % Calcium Magnesium Urine Color Yellow Urine Appearance Cloudy Urine pH 6.0 Ur Specific [place] 1.025 Urine Protein Negative Urine Glucose (UA) 500 H Urine Ketones Negative Urine Blood Negative Urine Nitrite Negative Ur Leukocyte Esterase Negative Urine Opiates Screen POSITIVE H Ur Buprenorphine Scrn Not Detected Ur Oxycodone Screen Not Detected Urine Methadone Screen Positive H Urine Fentanyl Screen POSITIVE H Ur Barbiturates Screen Not Detected Ur Phencyclidine Scrn Not Detected Ur Amphetamines Screen Not Detected U Benzodiazepines Scrn Not Detected Urine Cocaine Screen POSITIVE H U Marijuana (THC) Screen POSITIVE H 09/21/24 09/21/24 09/21/24 02:18 05:36 06:09 WBC 9.4 RBC 4.48 Hgb 13.0 Hct 39.2 MCV 87.5 MCH 29.0 MCHC 33.2 RDW 13.2 Plt Count 261 MPV 10.3 Immature Gran % (Auto) 0.3 Neut % (Auto) 69.7 Lymph % (Auto) 20.8 [place] % (Auto) 6.9 Eos % (Auto) 2.1 Baso % (Auto) 0.2 Lymph # (Auto) 2.0 [place] # (Auto) 0.7 Eos # (Auto) 0.2 Baso # (Auto) 0.0 Abs Immat Gran (auto) 0.03 Absolute Neuts (auto) 6.6 Absolute Nucleated RBC 0.000 Nucleated RBC % (auto) 0.0 Sodium 139 Potassium 4.7 Chloride 106 Carbon Dioxide 25 Anion Gap 13 BUN 12 Creatinine 0.83 Estim Creat Clear Calc 62.5 Estimated GFR > 60 POC Glucose 248 H 278 H Random Glucose 308 H Estimat Average Glucose 237 Hemoglobin A1c % 9.9 H Calcium 9.3 Magnesium 1.8 Urine Color Urine Appearance Urine pH Ur Specific [place] Urine Protein Urine Glucose (UA) Urine Ketones Urine Blood Urine Nitrite Ur Leukocyte Esterase Urine Opiates Screen Ur Buprenorphine Scrn Ur Oxycodone Screen Urine Methadone Screen Urine Fentanyl Screen Ur Barbiturates Screen Ur Phencyclidine Scrn Ur Amphetamines Screen U Benzodiazepines Scrn Urine Cocaine Screen U Marijuana (THC) Screen 09/21/24 10:21 WBC RBC Hgb Hct MCV MCH MCHC RDW Plt Count MPV Immature Gran % (Auto) Neut % (Auto) Lymph % (Auto) [place] % (Auto) Eos % (Auto) Baso % (Auto) Lymph # (Auto) [place] # (Auto) Eos # (Auto) Baso # (Auto) Abs Immat Gran (auto) Absolute Neuts (auto) Absolute Nucleated RBC Nucleated RBC % (auto) Sodium Potassium Chloride Carbon Dioxide Anion Gap BUN Creatinine Estim Creat Clear Calc Estimated GFR POC Glucose 197 H Random Glucose Estimat Average Glucose Hemoglobin A1c % Calcium Magnesium Urine Color Urine Appearance Urine pH Ur Specific [place] Urine Protein Urine Glucose (UA) Urine Ketones Urine Blood Urine Nitrite Ur Leukocyte Esterase Urine Opiates Screen Ur Buprenorphine Scrn Ur Oxycodone Screen Urine Methadone Screen Urine Fentanyl Screen Ur Barbiturates Screen Ur Phencyclidine Scrn Ur Amphetamines Screen U Benzodiazepines Scrn Urine Cocaine Screen U Marijuana (THC) Screen Mental Status Exam Mental Status Exam Level of Consciousness: Drowsy Patient Behavior: Appropriate and Cooperative Affect Description: Calm Speech Pattern: Clear Hallucinations: None Thought Process: Intact Thought Content: positive for Intact Judgement: Good Medications Medications Current Medications Acetaminophen (Acetaminophen 325 Mg Tablet) 975 mg PO Q6H PRN PRN Reason: Pain, Mild 1-3,fever,headache Aspirin (Aspirin 81 Mg Tab.Chew) 81 mg PO DAILY [facility] Last Admin: 09/21/24 09:04 Dose: 81 mg Atorvastatin Calcium (Atorvastatin Calcium 40 Mg Tablet) 40 mg PO DAILY [facility] Last Admin: 09/21/24 08:58 Dose: 40 mg Buspirone HCl (Buspirone Hcl 5 Mg Tablet) 7.5 mg PO BID [facility] Last Admin: 09/21/24 08:57 Dose: 7.5 mg Calcium Carbonate (Calcium Carbonate 750 Mg Tab.Chew) 750 mg PO Q4H PRN PRN Reason: Heartburn Dextrose (Dextrose 50 % 25 Gm/50 Ml Syringe) 25 gm IVPUSH Q15M PRN; Protocol PRN Reason: per Hypoglycemia Standing Ord. Last Admin: 09/21/24 01:56 Dose: 25 gm Dextrose (Dextrose 50 % 25 Gm/50 Ml Syringe) 25 gm IVPUSH Q15M PRN; Protocol PRN Reason: per Hypoglycemia Standing Ord. Enoxaparin Sodium (Enoxaparin Sodium 40 Mg/0.4 Ml Syringe) 40 mg SUBCUT Q24H [facility] Last Admin: 09/21/24 09:02 Dose: 40 mg Fluticasone/Vilanterol (Fluticasone/Vilanterol 100/25 Blst.W.Dev) 1 puff INHALE RDAILY [facility] Last Admin: 09/21/24 08:27 Dose: 1 puff Gabapentin (Gabapentin 300 Mg Capsule) 300 mg PO TID [facility] Last Admin: 09/21/24 08:58 Dose: 300 mg Glucose (Glucose Gel 15 Gm Gel..Gram.) 15 gm PO Q15M PRN; Protocol PRN Reason: per Hypoglycemia Standing Ord. Insulin Human Lispro (Insulin Lispro 100 Unit/Ml 3 Ml Vial) 0 unit SUBCUT QIDACHS [facility]; Protocol Losartan Potassium (Losartan Potassium 50 Mg Tablet) 50 mg PO DAILY [facility]; Protocol Last Admin: 09/21/24 08:57 Dose: 50 mg Magnesium Hydroxide (Milk Of Magnesia 30 Ml Oral.Susp) 30 ml PO DAILY PRN PRN Reason: Constipation Melatonin (Melatonin 3 Mg Tablet) 6 mg PO BEDTIME PRN PRN Reason: Insomnia Methadone HCl (Methadone Hcl 20 Mg/2 Ml Oral.Conc) 90 mg PO DAILY@0800 [facility] Methadone HCl (Methadone Hcl 20 Mg/2 Ml Oral.Conc) 90 mg PO DAILY [facility] Montelukast Sodium (Montelukast Sodium 10 Mg Tablet) 10 mg PO BEDTIME [facility] Last Admin: 09/20/24 21:41 Dose: 10 mg Sodium Chloride (0.9 % Sodium Chloride Flush 3 Ml Syringe) 3 ml IVFLUSH QSHIFT [facility] Last Admin: 09/21/24 08:56 Dose: 3 ml Venlafaxine HCl (Venlafaxine Hcl Er 75 Mg Cap.Er.24h) 75 mg PO DAILY [facility] Last Admin: 09/21/24 08:57 Dose: 75 mg Allergies Allergies Allergy/AdvReac Type Severity Reaction Status Date / Time sulfamethoxazole (From Allergy Intermediate LIP Verified 06/18/21 15:10 BACTRIM) SWELLING soap (SOAP) Allergy Mild HIVES (TO Verified 06/18/21 15:10 IVORY SOAP) Sulfa (Sulfonamide Allergy Unknown Unknown Verified 06/18/21 15:10 Antibiotics) prednisone (PREDNISONE) AdvReac Intermediate bruising Verified 06/18/21 15:10 ivory soap Allergy Unknown hives Uncoded 07/27/13 00:00 Assessment & Plan Assessment & Plan (1) Opioid use disorder: Status: Acute Code(s): F11.90 - Opioid use, unspecified, uncomplicated Assessment and Plan: * presentation likely due to fentanyl use--unfortunately current drug supply is being cut with many other agents, which may have contributed to extreme sedation.--UDS add on sent for medetomidine * methadone can be resumed once mentation improves --patient already connected to [facility] * dispute resolution analyst to follow up and discuss overdose prevention --take home narcan at discharge. Total time managing care of this patient today __35__ minutes. PMFSH Past Medical History Medical History Interstitial cystitis Depression Insomnia Diabetes Surgical History Surgical History Tubal ligation status Hx of appendectomy Social History Social History (Updated 09/20/24 @ 10:29 by Mounika Salas DO) Patient Tobacco Use Status: Tobacco use Unknown Advance Directives: No Advance Directives Information Provided: No Do you have a plan to hurt others: No Plan Patient : No
[2024-09-21 14:10] LABS: Glucose, Whole Blood 197 mg/dL (60-115)
--- NOTE | 2024-09-21 14:14 | MHC.CM.PN ---
pt lives alone is independent will need a ride [facility] dc plan home no services
[2024-09-21 15:59] LABS: Glucose, Whole Blood 202 mg/dL (60-115)
[2024-09-21 21:01] LABS: Glucose, Whole Blood 276 mg/dL (60-115)
[2024-09-22] VITALS (9 sets, daily range): BP systolic 93–159; BP diastolic 56–82; PULSE 75–93; RESP 14–18; TEMP 36–36.9; O2SAT 94–99
[2024-09-22 05:22] LABS: Glucose, Whole Blood 314 mg/dL (60-115)
--- NOTE | 2024-09-22 06:22 | PC.NURSE ---
pt woke up feeling funny and sweating. Blood sugar 314 at 0516. Provider Gene notified. 8 units of insulin administered early (0616) per provider Gene.
[2024-09-22 07:32] LABS: Glucose, Whole Blood 214 mg/dL (60-115)
[2024-09-22 07:38] LABS: Anion Gap 13 (12-20); Blood Urea Nitrogen 14 mg/dL (9-16); Calcium 9.3 mg/dL (8.4-10.2); Carbon Dioxide 25 mmol/L (22-29); Chloride 102 mmol/L (96-108); Creatinine Clr Calc Pharmacy 58.2; Estimated Glomerular Filt Rate > 60; Potassium 4.8 mmol/L (3.3-5.1); Sodium 135 mmol/L (135-145)
[2024-09-22 08:06] LABS: HBS Num1 1.24 mIU/mL (0-7.99); HBc Num1 0.04 S/CO (0.00-0.79); HBsAGNum1 0.39 S/CO (0.00-0.99); HIV Num 1 0.05 S/CO (0.00-0.99); Hepatitis B Surface Antigen Negative (Negative); ~HepC Num1 0.09 S/CO (0.00-0.79); ~Hepatitis B Surface Antibody NONREACTIVE (Nonreactive); ~Hepatitis C Antibody Nonreactive (Nonreactive)
[2024-09-22] MEDS: methADONE HCl 20 MG/2 ML ORAL.CONC 90 MG PO (08:07)
[2024-09-22] MEDS: Insulin Glargine,Hum.rec.anlog 100 UNIT/ML 10 ML VIAL 20 UNIT SUBCUT (08:08)
[2024-09-22] MEDS: Venlafaxine HCl ER 75 MG CAP.ER.24H PO (08:10)
[2024-09-22] MEDS: Fluticasone/Vilanterol 100/25 BLST.W.DEV 1 PUFF INHALE (08:24)
--- NOTE | 2024-09-22 11:06 | MHC.CM.PN ---
Per MD patient not medically cleared for dc. Will likely require VNA for SN on dc. [facility] following, patient preference. Reviewed dc plan w/ daughter [place] ([phone]) per patient request. 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 Referral sent via [facility]. CM will continue to follow.
[2024-09-22 11:17] LABS: Glucose, Whole Blood 128 mg/dL (60-115)
--- NOTE | 2024-09-22 11:22 | P.PNIM_ITS ---
Subjective Subjective Date of Service: 09/22/24 Interval History: denies taking any fentanyl or cocaine, just some pills given to her by friend BGs now high Review of Systems Review of Systems: Yes all other systems are reviewed and are negative Physical Exam 2 Vital Signs: Vital Signs: Last Vital Signs Temp 98.4 F 09/22/24 08:00 Pulse 75 09/22/24 08:27 Resp 14 09/22/24 08:27 BP 159/82 H 09/22/24 08:00 Pulse Ox 96 09/22/24 08:00 O2 Del Method Room Air 09/22/24 08:00 BMI result Body Mass Index 31.2 Gen: in no acute distress HEENT: sclera anicteric, moist mucus membranes Neck: supple Lungs: clear to auscultation bilaterally Heart: regular rate and rhythm, no murmurs Abd: soft, non-tender, non-distended Ext: no edema Skin: warm/well-perfused Neuro: alert and oriented x3, no focal findings Psych: restricted affect Objective Data Active Medications Acetaminophen (Acetaminophen 325 Mg Tablet) 975 mg PO Q6H PRN PRN Reason: Pain, Mild 1-3,fever,headache Aspirin (Aspirin 81 Mg Tab.Chew) 81 mg PO DAILY [facility] Last Admin: 09/22/24 08:10 Dose: 81 mg Documented By: ISAI Atorvastatin Calcium (Atorvastatin Calcium 40 Mg Tablet) 40 mg PO DAILY [facility] Last Admin: 09/22/24 08:09 Dose: 40 mg Documented By: ISAI Buspirone HCl (Buspirone Hcl 5 Mg Tablet) 7.5 mg PO BID [facility] Last Admin: 09/22/24 08:10 Dose: 7.5 mg Documented By: ISAI Calcium Carbonate (Calcium Carbonate 750 Mg Tab.Chew) 750 mg PO Q4H PRN PRN Reason: Heartburn Dextrose (Dextrose 50 % 25 Gm/50 Ml Syringe) 25 gm IVPUSH Q15M PRN; Protocol PRN Reason: per Hypoglycemia Standing Ord. Last Admin: 09/21/24 01:56 Dose: 25 gm Documented By: VANDANA Dextrose (Dextrose 50 % 25 Gm/50 Ml Syringe) 25 gm IVPUSH Q15M PRN; Protocol PRN Reason: per Hypoglycemia Standing Ord. Enoxaparin Sodium (Enoxaparin Sodium 40 Mg/0.4 Ml Syringe) 40 mg SUBCUT Q24H [facility] Last Admin: 09/22/24 08:09 Dose: 40 mg Documented By: ISAI Fluticasone/Vilanterol (Fluticasone/Vilanterol 100/25 Blst.W.Dev) 1 puff INHALE RDAILY [facility] Last Admin: 09/22/24 08:24 Dose: 1 puff Documented By: JULIETTE Gabapentin (Gabapentin 300 Mg Capsule) 300 mg PO TID [facility] Last Admin: 09/22/24 08:09 Dose: 300 mg Documented By: ISAI Glucose (Glucose Gel 15 Gm Gel..Gram.) 15 gm PO Q15M PRN; Protocol PRN Reason: per Hypoglycemia Standing Ord. Insulin Glargine (Insulin Glargine,Hum.Rec.Anlog 100 Unit/Ml 10 Ml Vial) 20 unit SUBCUT DAILY [facility] Last Admin: 09/22/24 08:08 Dose: 20 unit Documented By: ISAI Insulin Human Lispro (Insulin Lispro 100 Unit/Ml 3 Ml Vial) 0 unit SUBCUT QIDACHS [facility]; Protocol Last Admin: 09/22/24 08:08 Dose: 4 unit Documented By: ISAI Losartan Potassium (Losartan Potassium 50 Mg Tablet) 50 mg PO DAILY [facility]; Protocol Last Admin: 09/22/24 08:09 Dose: 50 mg Documented By: ISAI Magnesium Hydroxide (Milk Of Magnesia 30 Ml Oral.Susp) 30 ml PO DAILY PRN PRN Reason: Constipation Melatonin (Melatonin 3 Mg Tablet) 6 mg PO BEDTIME PRN PRN Reason: Insomnia Methadone HCl (Methadone Hcl 20 Mg/2 Ml Oral.Conc) 90 mg PO DAILY@0800 [facility] Last Admin: 09/22/24 08:07 Dose: 90 mg Documented By: ISAI Co-signed By: MACRINA Montelukast Sodium (Montelukast Sodium 10 Mg Tablet) 10 mg PO BEDTIME [facility] Last Admin: 09/21/24 21:08 Dose: 10 mg Documented By: GALEN Sodium Chloride (0.9 % Sodium Chloride Flush 3 Ml Syringe) 3 ml IVFLUSH QSHIFT [facility] Last Admin: 09/22/24 08:14 Dose: Not Given Documented By: ISAI Non-Admin Reason: Previously Administered Venlafaxine HCl (Venlafaxine Hcl Er 75 Mg Cap.Er.24h) 75 mg PO DAILY [facility] Last Admin: 09/22/24 08:10 Dose: 75 mg Documented By: ISAI Labs 09/21/24 05:36 09/22/24 06:38 Labs: Laboratory Results - last 24 hr 09/21/24 09/21/24 09/21/24 14:04 15:30 20:56 Hold Purple Top Anion Gap Estim Creat Clear Calc Estimated GFR POC Glucose 197 H 202 H 276 H Random Glucose Calcium Hep Bs Antigen Hep Bs Antibody Hep B Core Total Ab Hepatitis C Ab (EIA) HIV 1&2 Ab/P24 Ag 4thGn 09/22/24 09/22/24 09/22/24 05:16 06:38 07:28 Hold Purple Top SEE NOTE Anion Gap 13 Estim Creat Clear Calc 58.2 Estimated GFR > 60 POC Glucose 314 H 214 H Random Glucose 306 H Calcium 9.3 Hep Bs Antigen Negative Hep Bs Antibody NONREACTIVE Hep B Core Total Ab Nonreactive Hepatitis C Ab (EIA) Nonreactive HIV 1&2 Ab/P24 Ag 4thGn Nonreactive 09/22/24 11:07 Hold Purple Top Anion Gap Estim Creat Clear Calc Estimated GFR POC Glucose 128 H Random Glucose Calcium Hep Bs Antigen Hep Bs Antibody Hep B Core Total Ab Hepatitis C Ab (EIA) HIV 1&2 Ab/P24 Ag 4thGn Assessment and Plan (1) Hypoglycemia: Status: Acute Plan d3, 64yoF with DM2 on Tresiba, OUD on methadone brought in unresponsive with hypoglycemia DM2 with hypoglycemia - pt on 56 units of Tresiba qhs - hypoglycemia resolved; start Lantus 20 units qam and continue to monitor BGs; correction-dose lispro HTN - losartan HLD - atorvastatin mood disorder - venlafaxine, buspirone asthma - continue montelukast, Breo OUD - verified methadone dose fentanyl + cocaine abuse - Addiction Medicine consulted, screen HBV/HCV/HIV negative; naloxone on dischrage VTE ppx - enoxaparin dispo - eventual home In my clinical judgment, the patient requires continued inpatient hospitalization for the following reasons: hypoglycemia Total time managing care of this patient today: 40 minutes. Quality Stroke Does the patient have a stroke diagnosis?: No VTE Prior VTE?: No VTE Risk Level:: Medical - moderate - high VTE Device Contraindication: Treatment Not Indicated VTE Drug Contraindication: N/A - Med Ordered
--- NOTE | 2024-09-22 11:48 | HO.ADDICTPRO ---
Subjective Subjective Date of Service: 09/22/24 Reason For Visit: Hypoglycemia Interim History: patient seen in follow up for opioid use Patient more awake today, more alert, buut states she still feels weak. Discussed occasional substance use. She does report occasionally using cocaine, but denies any fentanyl use. Reviewed some overdose prevention and risk reduction strategies. methadone dose has been resumed no concern or reports of withdrawal Review of Systems Constitutional: Reports as per HPI and Reports no additional constitutional complaints Mental Status Exam Mental Status Exam Patient Appearance: Appropriate Patient Orientation: Person, Place, Time and Situation Level of Consciousness: Awake, Appropriate and Alert Patient Behavior: Appropriate and Talkative Mood Description: Calm Affect Description: Calm Speech Pattern: Clear Hallucinations: None Thought Process: Intact Thought Content: positive for Intact Judgement: Fair Diagnostics Vital Signs (24Hr): Vital Signs - 24 hr 09/21/24 12:08 09/21/24 15:13 09/21/24 20:00 Temperature 97.1 F 97.2 F Pulse Rate 64 75 78 Respiratory Rate 14 16 18 Blood Pressure 131/67 141/74 H 137/67 Pulse Oximetry 95 96 97 Oxygen Delivery Method Room Air Room Air Room Air 09/22/24 03:16 09/22/24 03:19 09/22/24 08:00 Temperature 97.0 F 96.8 F 98.4 F Pulse Rate 79 76 75 Respiratory Rate 16 16 18 Blood Pressure 157/81 H 157/81 H 159/82 H Pulse Oximetry 96 99 96 Oxygen Delivery Method Room Air Room Air Room Air 09/22/24 08:27 Temperature Pulse Rate 75 Respiratory Rate 14 Blood Pressure Pulse Oximetry Oxygen Delivery Method BMI result Body Mass Index 31.2 Labs 09/21/24 05:36 09/22/24 06:38 Labs: Laboratory Results - last 48 hr 09/20/24 09/20/24 09/20/24 10:34 14:40 15:16 WBC RBC Hgb Hct MCV MCH MCHC RDW Plt Count MPV Immature Gran % (Auto) Neut % (Auto) Lymph % (Auto) [place] % (Auto) Eos % (Auto) Baso % (Auto) Lymph # (Auto) [place] # (Auto) Eos # (Auto) Baso # (Auto) Abs Immat Gran (auto) Absolute Neuts (auto) Absolute Nucleated RBC Nucleated RBC % (auto) Hold Purple Top Sodium Potassium Chloride Carbon Dioxide Anion Gap BUN Creatinine Estim Creat Clear Calc Estimated GFR POC Glucose 72 42 L* 212 H Random Glucose Estimat Average Glucose Hemoglobin A1c % Calcium Magnesium Urine Color Urine Appearance Urine pH Ur Specific [place] Urine Protein Urine Glucose (UA) Urine Ketones Urine Blood Urine Nitrite Ur Leukocyte Esterase Urine Opiates Screen Ur Buprenorphine Scrn Ur Oxycodone Screen Urine Methadone Screen Urine Fentanyl Screen Ur Barbiturates Screen Ur Phencyclidine Scrn Ur Amphetamines Screen U Benzodiazepines Scrn Urine Cocaine Screen U Marijuana (THC) Screen Hep Bs Antigen Hep Bs Antibody Hep B Core Total Ab Hepatitis C Ab (EIA) HIV 1&2 Ab/P24 Ag 4thGn 09/20/24 09/20/24 09/20/24 16:25 17:02 21:40 WBC RBC Hgb Hct MCV MCH MCHC RDW Plt Count MPV Immature Gran % (Auto) Neut % (Auto) Lymph % (Auto) [place] % (Auto) Eos % (Auto) Baso % (Auto) Lymph # (Auto) [place] # (Auto) Eos # (Auto) Baso # (Auto) Abs Immat Gran (auto) Absolute Neuts (auto) Absolute Nucleated RBC Nucleated RBC % (auto) Hold Purple Top Sodium Potassium Chloride Carbon Dioxide Anion Gap BUN Creatinine Estim Creat Clear Calc Estimated GFR POC Glucose 246 H 214 H 190 H Random Glucose Estimat Average Glucose Hemoglobin A1c % Calcium Magnesium Urine Color Urine Appearance Urine pH Ur Specific [place] Urine Protein Urine Glucose (UA) Urine Ketones Urine Blood Urine Nitrite Ur Leukocyte Esterase Urine Opiates Screen Ur Buprenorphine Scrn Ur Oxycodone Screen Urine Methadone Screen Urine Fentanyl Screen Ur Barbiturates Screen Ur Phencyclidine Scrn Ur Amphetamines Screen U Benzodiazepines Scrn Urine Cocaine Screen U Marijuana (THC) Screen Hep Bs Antigen Hep Bs Antibody Hep B Core Total Ab Hepatitis C Ab (EIA) HIV 1&2 Ab/P24 Ag 4thGn 09/20/24 09/21/24 09/21/24 22:22 01:47 02:18 WBC RBC Hgb Hct MCV MCH MCHC RDW Plt Count MPV Immature Gran % (Auto) Neut % (Auto) Lymph % (Auto) [place] % (Auto) Eos % (Auto) Baso % (Auto) Lymph # (Auto) [place] # (Auto) Eos # (Auto) Baso # (Auto) Abs Immat Gran (auto) Absolute Neuts (auto) Absolute Nucleated RBC Nucleated RBC % (auto) Hold Purple Top Sodium Potassium Chloride Carbon Dioxide Anion Gap BUN Creatinine Estim Creat Clear Calc Estimated GFR POC Glucose 57 L* 248 H Random Glucose Estimat Average Glucose Hemoglobin A1c % Calcium Magnesium Urine Color Yellow Urine Appearance Cloudy Urine pH 6.0 Ur Specific [place] 1.025 Urine Protein Negative Urine Glucose (UA) 500 H Urine Ketones Negative Urine Blood Negative Urine Nitrite Negative Ur Leukocyte Esterase Negative Urine Opiates Screen POSITIVE H Ur Buprenorphine Scrn Not Detected Ur Oxycodone Screen Not Detected Urine Methadone Screen Positive H Urine Fentanyl Screen POSITIVE H Ur Barbiturates Screen Not Detected Ur Phencyclidine Scrn Not Detected Ur Amphetamines Screen Not Detected U Benzodiazepines Scrn Not Detected Urine Cocaine Screen POSITIVE H U Marijuana (THC) Screen POSITIVE H Hep Bs Antigen Hep Bs Antibody Hep B Core Total Ab Hepatitis C Ab (EIA) HIV 1&2 Ab/P24 Ag 4thGn 09/21/24 09/21/24 09/21/24 05:36 06:09 10:21 WBC 9.4 RBC 4.48 Hgb 13.0 Hct 39.2 MCV 87.5 MCH 29.0 MCHC 33.2 RDW 13.2 Plt Count 261 MPV 10.3 Immature Gran % (Auto) 0.3 Neut % (Auto) 69.7 Lymph % (Auto) 20.8 [place] % (Auto) 6.9 Eos % (Auto) 2.1 Baso % (Auto) 0.2 Lymph # (Auto) 2.0 [place] # (Auto) 0.7 Eos # (Auto) 0.2 Baso # (Auto) 0.0 Abs Immat Gran (auto) 0.03 Absolute Neuts (auto) 6.6 Absolute Nucleated RBC 0.000 Nucleated RBC % (auto) 0.0 Hold Purple Top Sodium 139 Potassium 4.7 Chloride 106 Carbon Dioxide 25 Anion Gap 13 BUN 12 Creatinine 0.83 Estim Creat Clear Calc 62.5 Estimated GFR > 60 POC Glucose 278 H 197 H Random Glucose 308 H Estimat Average Glucose 237 Hemoglobin A1c % 9.9 H Calcium 9.3 Magnesium 1.8 Urine Color Urine Appearance Urine pH Ur Specific [place] Urine Protein Urine Glucose (UA) Urine Ketones Urine Blood Urine Nitrite Ur Leukocyte Esterase Urine Opiates Screen Ur Buprenorphine Scrn Ur Oxycodone Screen Urine Methadone Screen Urine Fentanyl Screen Ur Barbiturates Screen Ur Phencyclidine Scrn Ur Amphetamines Screen U Benzodiazepines Scrn Urine Cocaine Screen U Marijuana (THC) Screen Hep Bs Antigen Hep Bs Antibody Hep B Core Total Ab Hepatitis C Ab (EIA) HIV 1&2 Ab/P24 Ag 4thGn 09/21/24 09/21/24 09/21/24 14:04 15:30 20:56 WBC RBC Hgb Hct MCV MCH MCHC RDW Plt Count MPV Immature Gran % (Auto) Neut % (Auto) Lymph % (Auto) [place] % (Auto) Eos % (Auto) Baso % (Auto) Lymph # (Auto) [place] # (Auto) Eos # (Auto) Baso # (Auto) Abs Immat Gran (auto) Absolute Neuts (auto) Absolute Nucleated RBC Nucleated RBC % (auto) Hold Purple Top Sodium Potassium Chloride Carbon Dioxide Anion Gap BUN Creatinine Estim Creat Clear Calc Estimated GFR POC Glucose 197 H 202 H 276 H Random Glucose Estimat Average Glucose Hemoglobin A1c % Calcium Magnesium Urine Color Urine Appearance Urine pH Ur Specific [place] Urine Protein Urine Glucose (UA) Urine Ketones Urine Blood Urine Nitrite Ur Leukocyte Esterase Urine Opiates Screen Ur Buprenorphine Scrn Ur Oxycodone Screen Urine Methadone Screen Urine Fentanyl Screen Ur Barbiturates Screen Ur Phencyclidine Scrn Ur Amphetamines Screen U Benzodiazepines Scrn Urine Cocaine Screen U Marijuana (THC) Screen Hep Bs Antigen Hep Bs Antibody Hep B Core Total Ab Hepatitis C Ab (EIA) HIV 1&2 Ab/P24 Ag 4thGn 09/22/24 09/22/24 09/22/24 05:16 06:38 07:28 WBC RBC Hgb Hct MCV MCH MCHC RDW Plt Count MPV Immature Gran % (Auto) Neut % (Auto) Lymph % (Auto) [place] % (Auto) Eos % (Auto) Baso % (Auto) Lymph # (Auto) [place] # (Auto) Eos # (Auto) Baso # (Auto) Abs Immat Gran (auto) Absolute Neuts (auto) Absolute Nucleated RBC Nucleated RBC % (auto) Hold Purple Top SEE NOTE Sodium 135 Potassium 4.8 Chloride 102 Carbon Dioxide 25 Anion Gap 13 BUN 14 Creatinine 0.89 Estim Creat Clear Calc 58.2 Estimated GFR > 60 POC Glucose 314 H 214 H Random Glucose 306 H Estimat Average Glucose Hemoglobin A1c % Calcium 9.3 Magnesium Urine Color Urine Appearance Urine pH Ur Specific [place] Urine Protein Urine Glucose (UA) Urine Ketones Urine Blood Urine Nitrite Ur Leukocyte Esterase Urine Opiates Screen Ur Buprenorphine Scrn Ur Oxycodone Screen Urine Methadone Screen Urine Fentanyl Screen Ur Barbiturates Screen Ur Phencyclidine Scrn Ur Amphetamines Screen U Benzodiazepines Scrn Urine Cocaine Screen U Marijuana (THC) Screen Hep Bs Antigen Negative Hep Bs Antibody NONREACTIVE Hep B Core Total Ab Nonreactive Hepatitis C Ab (EIA) Nonreactive HIV 1&2 Ab/P24 Ag 4thGn Nonreactive 09/22/24 11:07 WBC RBC Hgb Hct MCV MCH MCHC RDW Plt Count MPV Immature Gran % (Auto) Neut % (Auto) Lymph % (Auto) [place] % (Auto) Eos % (Auto) Baso % (Auto) Lymph # (Auto) [place] # (Auto) Eos # (Auto) Baso # (Auto) Abs Immat Gran (auto) Absolute Neuts (auto) Absolute Nucleated RBC Nucleated RBC % (auto) Hold Purple Top Sodium Potassium Chloride Carbon Dioxide Anion Gap BUN Creatinine Estim Creat Clear Calc Estimated GFR POC Glucose 128 H Random Glucose Estimat Average Glucose Hemoglobin A1c % Calcium Magnesium Urine Color Urine Appearance Urine pH Ur Specific [place] Urine Protein Urine Glucose (UA) Urine Ketones Urine Blood Urine Nitrite Ur Leukocyte Esterase Urine Opiates Screen Ur Buprenorphine Scrn Ur Oxycodone Screen Urine Methadone Screen Urine Fentanyl Screen Ur Barbiturates Screen Ur Phencyclidine Scrn Ur Amphetamines Screen U Benzodiazepines Scrn Urine Cocaine Screen U Marijuana (THC) Screen Hep Bs Antigen Hep Bs Antibody Hep B Core Total Ab Hepatitis C Ab (EIA) HIV 1&2 Ab/P24 Ag 4thGn Medications Medications Current Medications Acetaminophen (Acetaminophen 325 Mg Tablet) 975 mg PO Q6H PRN PRN Reason: Pain, Mild 1-3,fever,headache Aspirin (Aspirin 81 Mg Tab.Chew) 81 mg PO DAILY [facility] Last Admin: 09/22/24 08:10 Dose: 81 mg Atorvastatin Calcium (Atorvastatin Calcium 40 Mg Tablet) 40 mg PO DAILY [facility] Last Admin: 09/22/24 08:09 Dose: 40 mg Buspirone HCl (Buspirone Hcl 5 Mg Tablet) 7.5 mg PO BID [facility] Last Admin: 09/22/24 08:10 Dose: 7.5 mg Calcium Carbonate (Calcium Carbonate 750 Mg Tab.Chew) 750 mg PO Q4H PRN PRN Reason: Heartburn Dextrose (Dextrose 50 % 25 Gm/50 Ml Syringe) 25 gm IVPUSH Q15M PRN; Protocol PRN Reason: per Hypoglycemia Standing Ord. Last Admin: 09/21/24 01:56 Dose: 25 gm Dextrose (Dextrose 50 % 25 Gm/50 Ml Syringe) 25 gm IVPUSH Q15M PRN; Protocol PRN Reason: per Hypoglycemia Standing Ord. Enoxaparin Sodium (Enoxaparin Sodium 40 Mg/0.4 Ml Syringe) 40 mg SUBCUT Q24H [facility] Last Admin: 09/22/24 08:09 Dose: 40 mg Fluticasone/Vilanterol (Fluticasone/Vilanterol 100/25 Blst.W.Dev) 1 puff INHALE RDAILY [facility] Last Admin: 09/22/24 08:24 Dose: 1 puff Gabapentin (Gabapentin 300 Mg Capsule) 300 mg PO TID [facility] Last Admin: 09/22/24 08:09 Dose: 300 mg Glucose (Glucose Gel 15 Gm Gel..Gram.) 15 gm PO Q15M PRN; Protocol PRN Reason: per Hypoglycemia Standing Ord. Insulin Glargine (Insulin Glargine,Hum.Rec.Anlog 100 Unit/Ml 10 Ml Vial) 20 unit SUBCUT DAILY [facility] Last Admin: 09/22/24 08:08 Dose: 20 unit Insulin Human Lispro (Insulin Lispro 100 Unit/Ml 3 Ml Vial) 0 unit SUBCUT QIDACHS [facility]; Protocol Last Admin: 09/22/24 11:30 Dose: Not Given Losartan Potassium (Losartan Potassium 50 Mg Tablet) 50 mg PO DAILY [facility]; Protocol Last Admin: 09/22/24 08:09 Dose: 50 mg Magnesium Hydroxide (Milk Of Magnesia 30 Ml Oral.Susp) 30 ml PO DAILY PRN PRN Reason: Constipation Melatonin (Melatonin 3 Mg Tablet) 6 mg PO BEDTIME PRN PRN Reason: Insomnia Methadone HCl (Methadone Hcl 20 Mg/2 Ml Oral.Conc) 90 mg PO DAILY@0800 [facility] Last Admin: 09/22/24 08:07 Dose: 90 mg Montelukast Sodium (Montelukast Sodium 10 Mg Tablet) 10 mg PO BEDTIME [facility] Last Admin: 09/21/24 21:08 Dose: 10 mg Sodium Chloride (0.9 % Sodium Chloride Flush 3 Ml Syringe) 3 ml IVFLUSH QSHIFT [facility] Last Admin: 09/22/24 08:14 Dose: Not Given Venlafaxine HCl (Venlafaxine Hcl Er 75 Mg Cap.Er.24h) 75 mg PO DAILY [facility] Last Admin: 09/22/24 08:10 Dose: 75 mg Allergies Allergies Allergy/AdvReac Type Severity Reaction Status Date / Time sulfamethoxazole (From Allergy Intermediate LIP Verified 06/18/21 15:10 BACTRIM) SWELLING soap (SOAP) Allergy Mild HIVES (TO Verified 06/18/21 15:10 IVORY SOAP) Sulfa (Sulfonamide Allergy Unknown Unknown Verified 06/18/21 15:10 Antibiotics) prednisone (PREDNISONE) AdvReac Intermediate bruising Verified 06/18/21 15:10 ivory soap Allergy Unknown hives Uncoded 07/27/13 00:00 Assessment & Plan Assessment & Plan (1) Opioid use disorder: Status: Acute Code(s): F11.90 - Opioid use, unspecified, uncomplicated Assessment and Plan: home methadone resumed [employer] to follow up with fentanyl test strips and to review risk reduction take home narcan at [facility] Total time managing care of this patient today __25__ minutes.
--- NOTE | 2024-09-22 13:21 | MHC.RECOVRN ---
TW attempted to meet with pt in 380 to offer support, resources, and perform recovery/BH eval. On approach, pt was sleeping in but did open eyes when name was called. Pt presented as somnolent and difficult to engage. Tw will attempt to meet patient later this afternoon or tomorrow morning.
[2024-09-22 16:15] LABS: Glucose, Whole Blood 277 mg/dL (60-115)
[2024-09-22] MEDS: 0.9 % Sodium Chloride Flush 3 ML SYRINGE IVFLUSH ×2 (16:24→21:00)
[2024-09-22 19:58] LABS: Glucose, Whole Blood 179 mg/dL (60-115)
[2024-09-23 03:27] VITALS: BP 113/59; PULSE 67; RESP 18; TEMP 36.2; O2SAT 93
[2024-09-23 07:39] LABS: Glucose, Whole Blood 175 mg/dL (60-115)
[2024-09-23] MEDS: 0.9 % Sodium Chloride Flush 3 ML SYRINGE IVFLUSH (07:51)
[2024-09-23 07:52] VITALS: BP 129/68; PULSE 79; RESP 18; TEMP 36.9; O2SAT 96
[2024-09-23 08:00] VITALS: PULSE 79; RESP 18; O2SAT 96
[2024-09-23] MEDS: Fluticasone/Vilanterol 100/25 BLST.W.DEV 1 PUFF INHALE (08:00)
[2024-09-23] MEDS: methADONE HCl 20 MG/2 ML ORAL.CONC 90 MG PO (08:24)
[2024-09-23] MEDS: Venlafaxine HCl ER 75 MG CAP.ER.24H PO (08:25)
[2024-09-23] MEDS: Insulin Glargine,Hum.rec.anlog 100 UNIT/ML 10 ML VIAL 20 UNIT SUBCUT (08:26)
[2024-09-23 11:16] VITALS: BP 131/74; PULSE 98; RESP 18; TEMP 36.3; O2SAT 97
[2024-09-23 11:30] LABS: Glucose, Whole Blood 269 mg/dL (60-115)
[2024-09-23 12:00] VITALS: BP 111/65; PULSE 88; O2SAT 97
--- NOTE | 2024-09-23 12:04 | MHC.CM.PN ---
Per MD rounds patient medically cleared for dc home w/ new [facility] for SN. Daughter will transport.
--- NOTE | 2024-09-23 12:11 | P.DS_ITS ---
DS: Providers Provider Date of Service: 09/23/24 Date of admission: 09/20/24 16:24 Date of discharge: 09/23/24 Primary care physician: Jhoan Luke MD Consults: 09/21/24 08:37 Addiction Medicine Provider Routine Consulting Provider: Addiction Covering Reason for consultation: fentanyland cocaine DS: Diagnosis Discharge Diagnosis (1) Opioid use disorder: Status: Acute (2) Acute metabolic encephalopathy: Status: Acute (3) Hypoglycemia: Status: Acute (4) Type 2 diabetes mellitus: Status: Acute DS: Summary Hospital Course Hospital Course: From the history and physical by the admitting hospitalist, Alexander Cervantes MD, 09/20/24: Jaycee Hankins is a 64 years old woman with past medical history significant for type 2 diabetes on Tresiba and opiate use disorder on methadone was brought to the emergency department as he was found to be unresponsive. She was found to have significant hypoglycemia. She has complained of generalized weakness. Patient is now alert and oriented and said that the last time she used Tresiba was last night. Patient said that the last time she remembers was that she was supposed to go to court today. She denied any headache, dizziness, palpitations, headache, chest pain, shortness on breath, abdominal pain, nausea, vomiting or diarrhea. She denied illicit drug use. Smokes tobacco at times and denied alcohol abuse. Denies suicidal attempt. In the ED, she was found to have stable vital signs. Blood glucose was initially 42. Last blood glucoses are 212 and 246. There are no electrolyte imbalances. BUN is 17 and creatinine 1.06. ED tx: D50 50 g IV push total, IV fluids: D10 at 50 mL/hour. 64yoF with DM2 on Tresiba, OUD on methadone brought in unresponsive with hypoglycemia likely due to excess Tresiba, possibly complicated by unintentional intoxication. Mental status normalized. The patient's Utox was positive for fentanyl and cocaine but she adamantly denied using these substances, only smoking some marijuana. Hypoglycemia resolved with D10 IV then PO intake; started on lower dose of basal insulin. Met with Addiction Medicine and Narcan prescribed. Continued home dose of methadone and encouraged abstinence. Set up with [facility] services for diabetes teaching/monitoring of BG. Discharged on 20 units of her usual Tresiba U-200; can titrate by 2 unites daily to achieve am BG of less than 140. Should follow up with her PCP in 1 week. Time Attestation Discharge Coordination Time (in mins): 35 Quality: Safe Use of Opioids Does Pt have an Active Cancer Diagnosis on the Problem List?: No Quality: Stroke Does the patient have a stroke diagnosis?: No Physical Exam Vital Signs: Vital Signs: Last Vital Signs Temp 97.4 F 09/23/24 11:16 Pulse 88 09/23/24 12:00 Resp 18 09/23/24 11:16 BP 111/65 09/23/24 12:00 Pulse Ox 97 09/23/24 12:00 O2 Del Method Room Air 09/23/24 12:00 BMI result Body Mass Index 31.2 Gen: in no acute distress HEENT: sclera anicteric, moist mucus membranes Neck: supple Lungs: clear to auscultation bilaterally Heart: regular rate and rhythm, no murmurs Abd: soft, non-tender, non-distended Ext: no edema Skin: warm/well-perfused Neuro: alert and oriented x3, no focal findings Psych: restricted affect DS: Data Data Completed and Pending Completed studies during hospitalization [Text1]: Laboratory Results WBC 9.4 X10*3/uL (4.8-10.8) 09/21/24 05:36 RBC 4.48 X10*6/uL (4.20-5.50) 09/21/24 05:36 Hgb 13.0 g/dl (12.0-16.0) 09/21/24 05:36 Hct 39.2 % (37.0-47.0) 09/21/24 05:36 MCV 87.5 fL (80.0-98.0) 09/21/24 05:36 MCH 29.0 pg (27.0-33.0) 09/21/24 05:36 MCHC 33.2 g/dl (31.0-35.0) 09/21/24 05:36 RDW 13.2 % (11.0-16.0) 09/21/24 05:36 Plt Count 261 X10*3/uL (160-400) 09/21/24 05:36 MPV 10.3 fL (9.4-12.3) 09/21/24 05:36 Immature Gran % (Auto) 0.3 % (0.0-0.4) 09/21/24 05:36 Neut % (Auto) 69.7 % (45-73) 09/21/24 05:36 Lymph % (Auto) 20.8 % (20-40) 09/21/24 05:36 [place] % (Auto) 6.9 % (2-11) 09/21/24 05:36 Eos % (Auto) 2.1 % (0-4) 09/21/24 05:36 Baso % (Auto) 0.2 % (0-2) 09/21/24 05:36 Lymph # (Auto) 2.0 X10*3/uL (1.2-4.9) 09/21/24 05:36 [place] # (Auto) 0.7 X10*3/uL (0.1-1.2) 09/21/24 05:36 Eos # (Auto) 0.2 X10*3/uL (0.0-0.4) 09/21/24 05:36 Baso # (Auto) 0.0 X10*3/uL (0.0-0.2) 09/21/24 05:36 Abs Immat Gran (auto) 0.03 X10*3/uL (0.00-0.03) 09/21/24 05:36 Absolute Neuts (auto) 6.6 x10*3/uL (2.0-8.3) 09/21/24 05:36 Absolute Nucleated RBC 0.000 X10*3/uL (0.0-0.012) 09/21/24 05:36 Nucleated RBC % (auto) 0.0 /100WBC (0.0-0.2) 09/21/24 05:36 Hold Purple Top SEE NOTE 09/22/24 06:38 Sodium 135 mmol/L (135-145) 09/22/24 06:38 Potassium 4.8 mmol/L (3.3-5.1) 09/22/24 06:38 Chloride 102 mmol/L (96-108) 09/22/24 06:38 Carbon Dioxide 25 mmol/L (22-29) 09/22/24 06:38 Anion Gap 13 (12-20) 09/22/24 06:38 BUN 14 mg/dL (9-16) 09/22/24 06:38 Creatinine 0.89 mg/dL (0.5-1.4) 09/22/24 06:38 Estim Creat Clear Calc 58.2 09/22/24 06:38 Estimated GFR > 60 09/22/24 06:38 POC Glucose 269 mg/dL (60-115) H 09/23/24 11:19 Random Glucose 306 mg/dL (60-115) H 09/22/24 06:38 Estimat Average Glucose 237 mg/dL 09/21/24 05:36 Hemoglobin A1c % 9.9 % (<6.0) H 09/21/24 05:36 Calcium 9.3 mg/dL (8.4-10.2) 09/22/24 06:38 Magnesium 1.8 mg/dL (1.6-2.6) 09/21/24 05:36 Urine Color Yellow 09/20/24 22:22 Urine Appearance Cloudy 09/20/24 22:22 Urine pH 6.0 (5.0-9.0) 09/20/24 22:22 Ur Specific [place] 1.025 (1.005-1.025) 09/20/24 22:22 Urine Protein Negative mg/dL (Neg-Trace) 09/20/24 22:22 Urine Glucose (UA) 500 mg/dL (Negative) H 09/20/24 22:22 Urine Ketones Negative mg/dL (Negative) 09/20/24 22:22 Urine Blood Negative (Negative) 09/20/24 22:22 Urine Nitrite Negative (Negative) 09/20/24 22:22 Ur Leukocyte Esterase Negative (Negative) 09/20/24 22:22 Urine Opiates Screen POSITIVE (Not Detect) H 09/20/24 22:22 Ur Buprenorphine Scrn Not Detected ng/mL (Not Detect) 09/20/24 22:22 Ur Oxycodone Screen Not Detected ng/mL (Not Detect) 09/20/24 22:22 Urine Methadone Screen Positive ng/mL (Not Detect) H 09/20/24 22:22 Urine Fentanyl Screen POSITIVE (Not Detect) H 09/20/24 22:22 Ur Barbiturates Screen Not Detected (Not Detect) 09/20/24 22:22 Ur Phencyclidine Scrn Not Detected (Not Detect) 09/20/24 22:22 Ur Amphetamines Screen Not Detected (Not Detect) 09/20/24 22:22 U Benzodiazepines Scrn Not Detected (Not Detect) 09/20/24 22:22 Urine Cocaine Screen POSITIVE (Not Detect) H 09/20/24 22:22 U Marijuana (THC) Screen POSITIVE (Not Detect) H 09/20/24 22:22 Hep Bs Antigen Negative (Negative) 09/22/24 06:38 Hep Bs Antibody NONREACTIVE (Nonreactive) 09/22/24 06:38 Hep B Core Total Ab Nonreactive (Nonreactive) 09/22/24 06:38 Hepatitis C Ab (EIA) Nonreactive (Nonreactive) 09/22/24 06:38 HIV 1&2 Ab/P24 Ag 4thGn Nonreactive (Nonreactive) 09/22/24 06:38 Discharge Plan Discharge Anticipated Discharge Date/Time: 09/23/24 12:05 Patient Disposition: Home Health Service Discharge Diagnosis: hypoglycemia Referrals: [facility] [Outside] - 3-5 Days Referral Note: [facility] will call you to schedule home nursing visits Name,MD Jhoan [Primary Care Provider, Internal Medicine] - 1 Week Discharge Medications: New insulin degludec [Tresiba FlexTouch U-200] 200 unit/mL (3 mL) insulin pen 20 unit subcut DAILY Qty: 9 0RF naloxone [Narcan] 4 mg/actuation spray,non-aerosol 4 mg intranasal Q2M PRN (Reason: opioid overdose) Qty: 2 0RF Rx Instructions: spray 1 dose into ONE nostril; alternate nostrils w each dose until help arrives Continued atorvastatin 40 mg tablet 40 mg PO DAILY venlafaxine 75 mg capsule,extended release 24hr 75 mg PO DAILY aspirin 81 mg tablet,chewable 1 tab PO DAILY methadone [Methadone Intensol] 10 mg/mL Concentrate 90 mg PO DAILY montelukast 10 mg tablet 10 mg PO QPM budesonide-formoterol [Symbicort] 80-4.5 mcg/actuation HFA aerosol inhaler 2 puff PO BID buspirone 7.5 mg tablet 7.5 mg PO BID gabapentin 300 mg capsule 300 mg PO TID losartan 50 mg tablet 50 mg PO DAILY Discontinued insulin degludec [Tresiba FlexTouch U-200] 200 unit/mL (3 mL) insulin pen 56 unit subcut BEDTIME Discharge Orders: Discharge Order (Routine); Ordered 09/23/24 Ordered By: Parish Villafuerte Diet: Diabetic diet Activity on Discharge: As tolerated Stand Alone Forms: Patient Portal Discharge page Print Language: Filipino Care Plan Goals: avoid hypoglycemia Health Concerns: hypoglycemia Plan of Treatment: home with [facility] avoid all substances of abuse including marijuana decrease Tresiba from 56 to 20 units daily for now; if morning blood glucose is >140, increase Tresiba by 2 units daily to achieve morning blood glucose of 140 or less Please follow up with your primary care doctor within 1 week. Return to the hospital if you experience recurrent or worsening symptoms. Assessment: See Discharge Summary.
--- NOTE | 2024-09-23 12:11 | W.MHC.F2F ---
Service Date Service Date: 09/23/24 Encounter Date of encounter: 09/23/24 Reasons for Services Signs and symptoms assessed: hypoglycemia Reason for residential: diabetic teaching, monitoring of unstable blood sugar, medication management, medication treatment and teach disease management MD Overseeing Care: Jhoan Name Homebound: Leaving the home is medically contraindicated at this time without the asist of a device and/or another person due th the listed conditions above and below. Reason homebound: weakness related to hospital stay Certification: Based on the above findings, I certify that this patient is confined to the home and needs intermittent residential care, physical therapy and/or speech therapy, or continues to need occupational therapy. The patient is under my care, and I have initiated the establishment of the plan of care. The patient will be followed by a physician who will periodically review the plan of care. Time Spent With Patient Time: Total time managing care of this patient today ____ minutes.
== END 2024-09-23 12:35 | disposition home health service (06) | DRG 420 ==
LOC: HO.ED 16:41 → HO.EDOVER 16:46 → HO.S3 09-21 13:29
PROVIDERS: Nurse Practitioner Psychiatric/Mental Health; Admitting Provider Internal Medicine; Emergency Provider Emergency Medicine; PCP Internal Medicine Geriatric Medicine; Visit Provider Family Medicine
DX: E11.649 Type 2 diabetes mellitus with hypoglycemia without coma (principal); G93.41 Metabolic encephalopathy; F11.20 Opioid dependence, uncomplicated; F17.210 Nicotine dependence, cigarettes, uncomplicated; Z71.6 Tobacco abuse counseling; J44.9 Chronic obstructive pulmonary disease, unspecified; F14.10 Cocaine abuse, uncomplicated; I10 Essential (primary) hypertension; E78.5 Hyperlipidemia, unspecified; F39 Unspecified mood [affective] disorder; Z79.82 Long term (current) use of aspirin; Z79.899 Other long term (current) drug therapy
CPT/HCPCS: 36415; 80048; 80307; 81003; 82947; 83036; 83735; 85025; 86704; 86706; 86803; 87340; 87389; 94640; 99285; J1650; S9485

== ENCOUNTER → 2024-09-20 16:24 | Outpatient (BNV) | payer MEDICAID, SELFPAY | PROVIDERS: Admitting Provider Internal Medicine; Emergency Provider Emergency Medicine; PCP Internal Medicine Geriatric Medicine; Visit Provider Internal Medicine | DX: E16.2 Hypoglycemia, unspecified (principal) | CPT/HCPCS: 99223; 99232; 99239; G0180 ==

== ENCOUNTER → 2024-09-20 16:24 | Outpatient (BNV) | payer OTHER, SELFPAY | PROVIDERS: Admitting Provider Internal Medicine; Emergency Provider Emergency Medicine; PCP Internal Medicine Geriatric Medicine; Visit Provider Nurse Practitioner Psychiatric/Mental Health | DX: F11.90 Opioid use, unspecified, uncomplicated (principal) | CPT/HCPCS: 99232 ==